=== PATIENT | female | born 1975 | race Caucasian/White ===

== ENCOUNTER → 2022-02-15 10:50 | Outpatient (BNVA) | payer OTHER, SELFPAY | PROVIDERS: PCP Family Medicine; Visit Provider Physician Assistant Surgical | DX: E66.01 Morbid (severe) obesity due to excess calories (principal) | CPT/HCPCS: 99202; Q3014 ==

== ENCOUNTER 2022-03-05 07:47 | Outpatient (REF) | payer OTHER, SELFPAY ==
--- NOTE | ~2022-03-05 | XR_ITS ---
EXAMINATION: XR CHEST CLINICAL INFORMATION: Bariatric service evaluation. E66.01 COMPARISON: None TECHNIQUE: 2 views of the chest were obtained. FINDINGS: The lungs are clear. There is no airspace consolidation or groundglass opacity or effusion. Heart size normal. Vascularity normal. The hilar and mediastinal contours are unremarkable. There is a mild levocurvature lower thoracic spine. XR/XR chest 2V IMPRESSION: Unremarkable examination.
--- NOTE | 2022-03-05 07:56 | ECG_ITS ---
Test Reason : e66.01 Blood Pressure : / mmHG Vent. Rate : 084 BPM Atrial Rate : 084 BPM P-R Int : 158 ms QRS Dur : 094 ms QT Int : 384 ms P-R-T Axes : 067 044 030 degrees QTc Int : 453 ms Normal sinus rhythm Normal ECG No previous ECGs available Referred By: Rony Dumont Electronically Signed By:SUYAPA TSANG
[2022-03-05 08:03] LABS: MANUAL DIFF FLAG NO
[2022-03-05 08:23] LABS: Basophils Percent Auto 0.4 % (0-2); Eosinophils Absolute Auto 0.1 X10*3/uL (0.0-0.4); Hematocrit 41.9 % (37.0-47.0); Hemoglobin 14.2 g/dl (12.0-16.0); Imm Gran Abs Auto 0.03 X10*3/uL (0.00-0.03); Imm Gran Pct Auto 0.4 % (0.0-0.4); Lymphocytes Absolute Auto 1.6 X10*3/uL (1.2-4.9); Lymphocytes Percent Auto 22.5 % (20-40); Mean Corpuscular HGB Conc 33.9 g/dl (31.0-35.0); Mean Corpuscular Hemoglobin 31.4 pg (27.0-33.0); Mean Corpuscular Volume 92.7 fL (80.0-98.0); Mean Platelet Volume 11.6 fL (9.4-12.3); Monocytes Absolute Auto 0.5 X10*3/uL (0.1-1.2); Monocytes Percent Auto 6.5 % (2-11); Neutrophils Absolute Auto 4.8 x10*3/uL (2.0-8.3); Neutrophils Percent Auto 68.2 % (45-73); Platelet Count 248 X10*3/uL (160-400); Red Blood Count 4.52 X10*6/uL (4.20-5.50); Red Cell Distribution Width 12.3 % (11.0-16.0)
[2022-03-05 08:32] LABS: Estimated Average Glucose 100 mg/dL; Hemoglobin A1c % 5.1 %
[2022-03-05 08:49] LABS: Alanine Aminotransferase 23 U/L (0-31); Alkaline Phosphatase 51 U/L (39-117); Anion Gap 15 (12-20); Aspartate Amino Transferase 21 U/L (5-31); Bilirubin Total 0.4 mg/dL (0.0-1.0); Blood Urea Nitrogen 14 mg/dL (9-16); C Reactive Protein 1.11 mg/dL (< or = 0.50); Calcium 9.1 mg/dL (8.4-10.2); Carbon Dioxide 26 mmol/L (22-29); Chloride 104 mmol/L (96-108); Cholesterol 137 mg/dL; Estimated Glomerular Filt Rate > 60; Glucose Random 93 mg/dL (60-115); HDL Cholesterol 56 mg/dL; Iron 75 mcg/dL (30-160); LDL Cholesterol Calculated 70 mg/dl; Percent Iron Saturation 23 % (15-50); Potassium 4.2 mmol/L (3.3-5.1); Sodium 141 mmol/L (135-145); Total Iron Binding Capacity 325 mcg/dL (228-428); Triglycerides 58 mg/dL; Unsaturated Iron Binding 250 ug/dL
[2022-03-05 09:12] LABS: Ferritin 35 ng/mL (10-250); TSH reflex Free T4 1.31 uIU/mL (0.32-4.0); Vitamin D 25-OH Total 27.9 ng/mL (>30)
[2022-03-05 09:27] LABS: Insulin 9 uU/mL (2-29)
[2022-03-05 10:07] LABS: Folate 11.3 ng/mL (> or = 4.0); Vitamin B12 413 pg/mL (200-900)
[2022-03-06 11:57] LABS: Calcium (PTHI) 9.4 mg/dL (8.6-10.2); PTHI 25 pg/mL (16-77)
[2022-03-09 12:36] LABS: Zinc 77 mcg/dL (60-130)
[2022-03-10 17:10] LABS: Vitamin A 35 mcg/dL (38-98)
[2022-03-13 06:11] LABS: Vitamin B1 <6 nmol/L (8-30)
== END 2022-03-05 07:48 | disposition home or self-care (01) ==
LOC: HO.XRAY 07:47
PROVIDERS: PCP Family Medicine; Visit Provider Physician Assistant Surgical
DX: E66.01 Morbid (severe) obesity due to excess calories (principal)
CPT/HCPCS: 36415; 71046; 80053; 80061; 82306; 82607; 82728; 82746; 83036; 83525; 83540; 83970; 84425; 84443; 84590; 84630; 85025; 86140; 93005

== ENCOUNTER → 2022-03-11 09:58 | Outpatient (BNVA) | payer OTHER, SELFPAY | PROVIDERS: PCP Family Medicine; Visit Provider Physician Assistant Surgical | DX: Z11.0 Encounter for screening for intestinal infectious diseases (principal); E66.01 Morbid (severe) obesity due to excess calories; Z68.41 Body mass index [BMI] 40.0-44.9, adult | CPT/HCPCS: 99211; 99212 ==

== ENCOUNTER 2022-03-11 17:19 | Outpatient (REF) | payer OTHER, SELFPAY ==
[2022-03-12 13:20] LABS: H Pylori Breath Test Negative (Negative)
== END 2022-03-11 17:20 | disposition home or self-care (01) ==
LOC: HO.LNP 17:19
PROVIDERS: Visit Provider Physician Assistant Surgical
DX: E66.01 Morbid (severe) obesity due to excess calories (principal)
CPT/HCPCS: 83013

== ENCOUNTER → 2022-03-19 14:09 | Outpatient (BNVA) | payer OTHER, SELFPAY | PROVIDERS: PCP Family Medicine; Referring Provider Physician Assistant Surgical; Visit Provider Dietitian, Registered | DX: E66.01 Morbid (severe) obesity due to excess calories (principal); Z68.41 Body mass index [BMI] 40.0-44.9, adult | CPT/HCPCS: 97802 ==

== ENCOUNTER → 2022-04-04 14:00 | Outpatient (BNVA) | payer OTHER, SELFPAY | PROVIDERS: PCP Family Medicine; Referring Provider Physician Assistant Surgical; Visit Provider Counselor Mental Health | DX: F43.20 Adjustment disorder, unspecified (principal); E66.01 Morbid (severe) obesity due to excess calories | CPT/HCPCS: 90791 ==

== ENCOUNTER 2022-04-15 08:00 | Outpatient (REF) | payer OTHER, SELFPAY ==
--- NOTE | ~2022-04-15 | FL_ITS ---
EXAMINATION: XR FLUOROSCOPY UPPER GI WITH AIR CLINICAL INFORMATION: Obesity COMPARISON: None TECHNIQUE: Upper GI was performed using thin and thick barium and effervescent granules. FINDINGS: Esophageal motility is normal. No hernia or reflux is seen. The stomach and duodenum are normal-appearing. No fold thickening, mass, ulcer or stricture is seen. FLUOROSCOPY TIME: 0.5 minutes DOSE AREA PRODUCT: 5.2 Love per centimeter squared. 20 saved fluoroscopic images. FL/FL upper GI w air IMPRESSION: Unremarkable examination.
--- NOTE | ~2022-04-15 | US_ITS ---
EXAMINATION: US COMPLETE ABDOMEN WITH LIVER ELASTOGRAPHY CLINICAL INFORMATION: Obesity. COMPARISON: None. TECHNIQUE: Real-time imaging of the abdominal viscera. Noninvasive ultrasound liver fibrosis assessment is performed using Hermann ElastPQ point quantification shear wave elastography (2D-SWE) with a C5-2 MHz transducer. Multiple elastography samples are obtained. FINDINGS: PANCREAS: Normal. The visualized pancreatic head and body are normal in appearance. The remainder of the pancreas is obscured from visualization by the overlying bowel gas. ABDOMINAL AORTA: The proximal, middle, and distal aortic segments are normal in caliber. INFERIOR VENA CAVA: Visualized portions are normal. LIVER: Normal. The liver demonstrates normal size, contour and echogenicity. No focal lesion or intrahepatic biliary duct dilatation. The right lobe measures 14.2 cm in length. The left lobe measures 9.0 cm in length. Portal flow is towards the liver (hepatopetal). Shear wave liver elastography median stiffness is 2.05 m/s (reference: normal median stiffness is 1.3 m/s or less). IQR/median stiffness to assess sampling precision is 0.13 (reference: good quality data set is IQR/median stiffness of 0.15 or less). GALLBLADDER: There are gallstones, without biliary sludge, polyps, wall thickening or pericholecystic fluid. COMMON BILE DUCT: Normal in caliber measuring 0.4 cm in diameter. RIGHT KIDNEY: Normal. No hydronephrosis. No renal calculi or focal parenchymal lesions. The kidney measures 11.2 cm in maximum dimension. LEFT KIDNEY: Normal. No hydronephrosis. No renal calculi or focal parenchymal lesions. The kidney measures 10.9 cm in maximum dimension. SPLEEN: Normal. The spleen measures 9.2 cm in maximum dimension. FREE FLUID: None. US/US abdomen comp w elastography IMPRESSION: 1. There is cholelithiasis, cholecystitis or choledocholithiasis. 2. Liver elastography: Measurements are suggestive of compensated advanced chronic liver disease but need further test for confirmation. REFERENCE: Society of Radiologists in Ultrasound Liver Stiffness Thresholds (2020): LIVER STIFFNESS THRESHOLDS: *Liver Stiffness equal or less than 1.3 m/s: High probability of being normal. *Liver Stiffness less than 1.7 m/s: In the absence of other known clinical signs, rules out compensated advanced chronic liver disease. *Liver Stiffness 1.7-2.1 m/s: Suggestive of compensated advanced chronic liver disease but need further test for confirmation. *Liver Stiffness over 2.1 m/s: Rules in compensated advanced chronic liver disease. *Liver Stiffness over 2.4 m/s: Suggestive of clinically significant portal hypertension. QUALITY OF DATA SET: *IQR/Median value equal or less than 0.15 implies a quality data set. *IQR/Median value over 0.15 implies a poor quality data set. SIGNIFICANT CHANGE FROM PRIOR EXAM: Significant change if liver stiffness measurement is 10% or greater from prior exam. OTHER CONSIDERATIONS: The stage of liver fibrosis may be overestimated in the setting of acute hepatitis, liver inflammation, elevated liver function tests, hepatic vascular congestion, obstructive cholestasis, non-fasting state, and infiltrative diseases such as amyloidosis and lymphoma. In some patients with NAFLD, the liver stiffness thresholds for compensated advanced chronic liver disease may be lower. In causes other than viral hepatitis and NAFLD, liver stiffness thresholds are not well established.
== END 2022-04-15 08:01 | disposition home or self-care (01) ==
LOC: HO.US 08:00
PROVIDERS: Visit Provider Physician Assistant Surgical
DX: E66.01 Morbid (severe) obesity due to excess calories (principal)
CPT/HCPCS: 74246; 76705; 76981

== ENCOUNTER 2022-04-18 09:49 | Inpatient (IN) | payer OTHER, SELFPAY ==
[2022-04-12 08:59] VITALS: BMI 40.2
--- NOTE | 2022-04-12 21:02 | P.HPSUR_ITS ---
Pre-Procedural Eval Section A Date of Service: 04/12/22 The patient is an INPATIENT: Yes The History & Physical has been completed within 30 days and I have reviewed it.: Yes Section B Chief Complaint: Morbid (severe) obesity due to excess calories Relevant Family History (Specify if Yes): No Relevant Social History: None Present Medications: None Medical History: No relevant PMH History of Previous Operations: No relevant previous surgery Allergies: Allergies Allergy/AdvReac Type Severity Reaction Status Date / Time No Known Allergies Allergy Verified 03/11/22 10:27 Review of Systems Sugical H&P ROS: Negative: Constitution, Cardiovascular, Respiratory, Neurological, Psychiatric, Hem-Onc, Allergic/Immunologic, Gastrointestinal, Genitourinary, Musculoskeletal, Integumentary, Endocrine and Eyes/Ears/No se/Throat Exam Surgical H&P Exam: Normal: HEENT, Normal: Heart, Normal: Lungs, Normal: Extremities, Normal: Abdomen, Normal: Skin and Normal: Neurological Plan Diagnosis/Plan: Unchanged I have reviewed the history and physical and performed a pertinent physical examination on my patient. No changes have occurred unless specified.
[2022-04-13 10:22] LABS: MANUAL DIFF FLAG NO
[2022-04-13 10:40] LABS: Basophils Percent Auto 0.4 % (0-2); Eosinophils Absolute Auto 0.1 X10*3/uL (0.0-0.4); Eosinophils Percent Auto 1.6 % (0-4); Hematocrit 41.3 % (37.0-47.0); Hemoglobin 13.8 g/dl (12.0-16.0); Imm Gran Abs Auto 0.01 X10*3/uL (0.00-0.03); Imm Gran Pct Auto 0.2 % (0.0-0.4); Lymphocytes Absolute Auto 1.4 X10*3/uL (1.2-4.9); Lymphocytes Percent Auto 25.1 % (20-40); Mean Corpuscular HGB Conc 33.4 g/dl (31.0-35.0); Mean Corpuscular Hemoglobin 31.4 pg (27.0-33.0); Mean Corpuscular Volume 93.9 fL (80.0-98.0); Mean Platelet Volume 12.1 fL (9.4-12.3); Monocytes Absolute Auto 0.4 X10*3/uL (0.1-1.2); Monocytes Percent Auto 6.9 % (2-11); Neutrophils Absolute Auto 3.6 x10*3/uL (2.0-8.3); Neutrophils Percent Auto 65.8 % (45-73); Platelet Count 205 X10*3/uL (160-400); Red Cell Distribution Width 12.2 % (11.0-16.0); White Blood Count 5.5 X10*3/uL (4.8-10.8)
[2022-04-13 10:47] LABS: Estimated Average Glucose 100 mg/dL; Hemoglobin A1c % 5.1 %
[2022-04-13 10:58] LABS: Prothrombin Time 11.9 SEC (10.0-13.1)
[2022-04-13 11:00] LABS: Partial Thromboplastin Time 36.4 SEC (26.0-36.4)
[2022-04-13 11:32] LABS: Alanine Aminotransferase 49 U/L (0-31); Albumin Level 3.9 g/dL (3.5-5.0); Alkaline Phosphatase 48 U/L (39-117); Anion Gap 15 (12-20); Aspartate Amino Transferase 29 U/L (5-31); Blood Urea Nitrogen 14 mg/dL (9-16); C Reactive Protein 0.86 mg/dL (< or = 0.50); Carbon Dioxide 25 mmol/L (22-29); Chloride 106 mmol/L (96-108); Cholesterol 145 mg/dL; Estimated Glomerular Filt Rate > 60; Glucose Random 97 mg/dL (60-115); HDL Cholesterol 50 mg/dL; LDL Cholesterol Calculated 88 mg/dl; Potassium 4.1 mmol/L (3.3-5.1); Sodium 142 mmol/L (135-145); Total Protein 6.5 g/dL (6.5-8.0); Triglycerides 38 mg/dL
[2022-04-13 11:37] LABS: Insulin 9 uU/mL (2-29); TSH reflex Free T4 1.23 uIU/mL (0.32-4.0)
[2022-04-13 11:57] LABS: Bilirubin Total 0.4 mg/dL (0.0-1.0)
--- NOTE | 2022-04-17 10:01 | HO.ANESPROP2 ---
Documented by User: Anitha Jane NP 04/17/22 10:04 HPI - Anesthesia Eval Consult details Narrative: 46yo F for Gastrectomy Sleeve, EGD, possible diaphragmatic hernia. possible ventral hernia, possible open PMFSH Active Problems Active Problems: All Active Problems (Updated 04/12/22 @ 08:56 by Magdalena Nieto RN) Morbid obesity (Acute) HTN (hypertension) (Acute) Vitamin B12 deficiency (Acute) Adjustment disorder, unspecified (Acute) Past Medical History Medical History (Updated 04/18/22 @ 11:19 by Rufino Gonzalez MD) DJD (degenerative joint disease) HTN (hypertension) PONV (postoperative nausea and vomiting) Psoriasis Family History Family History Mother COPD (chronic obstructive pulmonary disease) Father No problems noted. Daughter No problems noted. Daughter No problems noted. Daughter No problems noted. Daughter No problems noted. Surgical History Surgical History (Updated 04/18/22 @ 13:56 by MICHAEL Marcano) History of bilateral breast implants Hx of colonoscopy Hx of mastectomy Hx of shoulder surgery Hx of tubal ligation Social History Social History Household Members: Spouse Housing: House Are you a primary home care associate to a significant other at home: Yes ( handicapped daughter) Do you presently have visiting nurse or other home services: No Alcohol intake: current Alcohol intake frequency: holidays/special occasions only Patient Tobacco Use Status: Former Tobacco user Quit Date: 2011 Tobacco use type: Cigarette Smoked in Last 30 Days: No Use of substances other than those prescribed or required for medical reasons: No Have you been hit, kicked, punched, or otherwise hurt by someone within the past year? If so, by whom?: No Do you feel safe in your current relationship?: Yes Is there a partner from a previous relationship who is making you feel unsafe now?: No Are you made to feel afraid or neglected: No Gnosticist Healthcare Practices: orthodox Are you DNR?: No Advance Directives: No Advance Directives Information Provided: Yes Advance Directives on File: No Do you have thoughts of harming others: None Do you have a plan to hurt others: No Plan Recently lost weight without trying: No Nutrition Risks: No Nutritional Risk Patient : No FDLMP: : No Poor oral hygiene: No Meds Allergies Allergy/AdvReac Type Severity Reaction Status Date / Time No Known Allergies Allergy Verified 03/11/22 10:27 Exam Exam Date and Time: April 17, 2022 1001 Height,Weight and Vital Signs: Height 5 ft 1 in Weight 96.615 kg Pertinent Lab Results Pertinent Lab Results: Laboratory Tests 04/13/22 04/13/22 04/13/22 10:15 10:21 10:21 WBC 5.5 RBC 4.40 Hgb 13.8 Hct 41.3 MCV 93.9 MCH 31.4 MCHC 33.4 RDW 12.2 Plt Count 205 MPV 12.1 Immature Gran % (Auto) 0.2 Neut % (Auto) 65.8 Lymph % (Auto) 25.1 [place] % (Auto) 6.9 Eos % (Auto) 1.6 Baso % (Auto) 0.4 Lymph # (Auto) 1.4 [place] # (Auto) 0.4 Eos # (Auto) 0.1 Baso # (Auto) 0.0 Abs Immat Gran (auto) 0.01 Absolute Neuts (auto) 3.6 Absolute Nucleated RBC 0.000 Nucleated RBC % (auto) 0.0 PT 11.9 INR 1.0 APTT 36.4 Sodium Potassium Chloride Carbon Dioxide Anion Gap BUN Creatinine Estim Creat Clear Calc Estimated GFR Random Glucose Estimat Average Glucose Hemoglobin A1c % Insulin Level Calcium Total Bilirubin AST ALT Alkaline Phosphatase C-Reactive Protein Total Protein Albumin Triglycerides Cholesterol LDL Cholesterol, Calc HDL Cholesterol TSH Blood Type O Negative Antibody Screen NEGATIVE 04/13/22 04/13/22 10:21 10:21 WBC RBC Hgb Hct MCV MCH MCHC RDW Plt Count MPV Immature Gran % (Auto) Neut % (Auto) Lymph % (Auto) [place] % (Auto) Eos % (Auto) Baso % (Auto) Lymph # (Auto) [place] # (Auto) Eos # (Auto) Baso # (Auto) Abs Immat Gran (auto) Absolute Neuts (auto) Absolute Nucleated RBC Nucleated RBC % (auto) PT INR APTT Sodium 142 Potassium 4.1 Chloride 106 Carbon Dioxide 25 Anion Gap 15 BUN 14 Creatinine 0.82 Estim Creat Clear Calc 93.0 Estimated GFR > 60 Random Glucose 97 Estimat Average Glucose 100 Hemoglobin A1c % 5.1 Insulin Level 9 Calcium 9.0 Total Bilirubin 0.4 AST 29 ALT 49 H Alkaline Phosphatase 48 C-Reactive Protein 0.86 H Total Protein 6.5 Albumin 3.9 Triglycerides 38 Cholesterol 145 LDL Cholesterol, Calc 88 HDL Cholesterol 50 TSH 1.23 Blood Type Antibody Screen Narrative Narrative: EKG 02/2022 Vent. Rate : 084 BPM ? ? Atrial Rate : 084 BPM ?? P-R Int : 158 ms? QRS Dur : 094 ms ? ? QT Int : 384 ms ? ? ? P-R-T Axes : 067 044 030 degrees ?? QTc Int : 453 ms ? Normal sinus rhythm Normal ECG No previous ECGs available Assessment and Plan Assessment Anesthesia Assessment: Chart Reviewed Documented by User: Be Sutton MD 04/18/22 16:31 [facility] Past Medical History Medical History (Updated 04/18/22 @ 11:19 by Rufino Gonzalez MD) DJD (degenerative joint disease) HTN (hypertension) PONV (postoperative nausea and vomiting) Psoriasis Functional capacity: independent ambulation Family History Family History Mother COPD (chronic obstructive pulmonary disease) Father No problems noted. Daughter No problems noted. Daughter No problems noted. Daughter No problems noted. Daughter No problems noted. Family history of problems with anesthesia: No Surgical History Surgical History (Updated 04/18/22 @ 13:56 by MICHAEL Marcano) History of bilateral breast implants Hx of colonoscopy Hx of mastectomy Hx of shoulder surgery Hx of tubal ligation History of Problems with Anesthesia: No Social History Social History Household Members: Spouse Housing: House Are you a primary home care associate to a significant other at home: Yes ( handicapped daughter) Do you presently have visiting nurse or other home services: No Alcohol intake: current Alcohol intake frequency: holidays/special occasions only Patient Tobacco Use Status: Former Tobacco user Quit Date: 2011 Tobacco use type: Cigarette Smoked in Last 30 Days: No Use of substances other than those prescribed or required for medical reasons: No Have you been hit, kicked, punched, or otherwise hurt by someone within the past year? If so, by whom?: No Do you feel safe in your current relationship?: Yes Is there a partner from a previous relationship who is making you feel unsafe now?: No Are you made to feel afraid or neglected: No Gnosticist Healthcare Practices: orthodox Are you DNR?: No Advance Directives: No Advance Directives Information Provided: Yes Advance Directives on File: No Do you have thoughts of harming others: None Do you have a plan to hurt others: No Plan Recently lost weight without trying: No Nutrition Risks: No Nutritional Risk Patient : No FDLMP: : No Poor oral hygiene: No Meds Allergies Allergy/AdvReac Type Severity Reaction Status Date / Time No Known Allergies Allergy Verified 03/11/22 10:27 Exam Airway Mallampati Class: III TM Dist: >3cm Neck ROM: Full Loose/Missing/Broken Teeth: Yes (Chipped front teeth , fillings ) Heart: S1,S2 Lungs: b/l breath sounds Assessment and Plan Assessment Anesthesia Assessment: Anesthesia Plan Discussed Final Anesthetic Review Family History of Problems with Anesthesia: No History of Problems with Anesthesia: No NPO: Yes ASA Class: III Final Preanesthetic Review: Meds/Allgs Chart Reviewed, Consent Obtained/Reviewed and Anes Risks/Benef Reviewed Patient Risk: Intermediate Procedure Risk: Intermediate Anesthetic Plan Anesthetic Plan: GA Disposition: Standard PACU
[2022-04-17 13:42] LABS: COVID-19 Test Negative (Negative); IDNOW Serial# 16C4AD1C
[2022-04-18] VITALS (11 sets, daily range): BP systolic 99–133; BP diastolic 59–79; PULSE 66–97; RESP 12–18; TEMP 36.2–36.9; O2SAT 94–100
[2022-04-18] MEDS: Scopolamine 1.5 MG PATCH.TD.3 TRANSDERMA (10:28)
--- NOTE | 2022-04-18 11:07 | P.BOP_ITS ---
Brief Operative Note Date of Service: 04/18/22 Pre-op diagnosis: Morbid obesity with comorbidities (see below) Procedure: INITIAL PATIENT BMI ON PRESENTATION AT OUR OFFICE: 46.8 kg/m2 LAST BMI BEFORE SURGERY: 40.3 kg/m2 COMORBIDITIES: hypertension, DJD, psoriasis ?The patient presented to the Weight Management Program with significant obesity that was negatively impacting the patient's comorbidities as listed above.? The program is a phased program with a special focus on preoperative medical weight management to promote substantial weight loss and prepare the patients for the second phase of the program: bariatric surgery. The patient participated in an i ntensive weekly lifestyle ?intervention and exercise program during which the patient ?has lost between the initial office visit and the last preoperative visit 34.2lbs, or 13.8% of initial actual body weight. It was deemed appropriate for the patient to now have bariatric surgery. In light of the current Covid-19 pandemic and the well documented strong association of obesity and increased risk of worse outcomes if infected with Covid-19 (REFERENCES: https://pubmed.ncbi.nlm.nih.gov/13388175/ ,? https://pubmed.ncbi.nlm.nih.gov/01695553/ ), any delay in undergoing bariatric surgery may lead to the patient's worsening health condition and increased?risk of more severe Covid-19 disease if infected. In addition a recent?study from [facility] published in [employer] on 07/16/2021 ([email or web address]) found that, among patients with obesity, substantial weight loss achieved with surgery was associated with improved outcomes of COVID-19 infection. The findings suggest that obesity can be a modifiable risk factor for the severity of COVID-19 infection. In addition, the patient met the BMI-criteria for bariatric surgery based on the BMI on initial presentation. The patient should not be penalized for achieving such weight loss because ?it is not sustainable long-term without surgical intervention and it was achieved in preparation for bariatric surgery ?under my direction and based on my published research ([email or web address]).[email or web address] and? https://www.edith.org/article/V9860-4507(16)43195-X/pdf ) ?that a 10% preoperative weight loss improves long-term weight loss after surgery and reduces perioperative complications.? Insurance carriers such as [facility] have endorsed my recommendations ?and have included in their policies criteria to include a 10% preoperative weight loss requirement. PROCEDURE: Esophago-gastroscopy, laparoscopic sleeve gastrectomy and laparoscopic gastropexy INDICATIONS: This is a 46 year-old female who was electively scheduled for laparoscopic, possibly open sleeve gastrectomy. The risks and complications of the procedure were discussed with the patient in advance, particularly the possibility of ; pulmonary embolism; staple line leak; bleeding; GERD; cardiac, pulmonary, or renal complications; as well as long-term problems such as insufficient weight loss, vitamin deficiency, strictures, or ulcers. The patient understood all the risks, and was in agreement to proceed with surgery. DESCRIPTION OF PROCEDURE: After informed consent was obtained from the patient, the patient was given preoperative antibiotics, and was transferred to the operating room. After successful induction of general anesthesia, pneumatic compression devices were placed on both lower extremities. An upper endoscopy was performed next. The oropharynx and esophagus appeared to be within normal limits. There was no diaphragmatic hernia present consistent with the findings of the preoperative upper GI. The stomach was entered. Then after all fluid and air were suctioned and the stomach was fully decompressed, the scope was withdrawn and secured in the mid esophagus. The patient was then prepped and draped in the usual sterile manner, and abdominal access was established at the right upper quadrant with the Cindy technique. A 12 mm blunt port was inserted, and the abdomen was insufflated with CO2 to a pressure of 15 mmHg. Under direct visualization, additional ports were placed, specifically two 5 mm Versi-step ports to the left upper quadrant, and a 5 mm Versi-Step port to the right upper quadrant. 1% lidocaine plain was used to infiltrate all port sites as well as all fascia defects. Using the EndoClose suture passer device, I placed a #1 Polysorb tie across the falciform ligament in order to retract it up against the abdominal wall and prevent injury of the ligament with our instruments during the procedure. Following that, the patient was placed in a steep reverse Trendelenburg position. An additional 5 mm port was placed to the right flank for the Mediflex retractor that was used to retract the left lobe of the liver. The gastro-esophageal fat pad was opened with the ultrasonic device (Thunderbeat, Olympus) and the anterior esophagus and hiatus were exposed. The angle of His was opened with the ultrasonic device the fundus of the stomach from any diaphragmatic and splenic attachments. I then opened the gastrocolic ligament between the transverse colon and the greater curvature of the stomach with the ultrasonic device to enter the lesser sac and facilitate the ligation of the short gastric vessels. I started at a mid-point along the greater curvature and using the Thunderbeat, all short gastric vessels were divided all the way to the angle of His until the left troy was completely dissected at its entirety. I then divided the gastro-colic ligament distally to a distance of about 3-4 cm proximal to the pylorus. The stomach was then divided transversely with one Endo CASSIE-45 purple, one CASSIE- 45 orange load and three CASSIE-60 articulating orange loads using the AEON stapler and loads. Every effort was made that the gastric sleeve had a tubular shape and an even caliber throughout. Once the sleeve resection was completed, the staple line of the gastric sleeve was reinforced with Hemoclips. The resected stomach was retrieved without difficulty from the Cindy port. A gastropexy was then performed in order to prevent postoperative GERD and partial gastric volvulus. Several interrupted 2.0 Surgidac sutures were placed between the sleeve's staple line and the previously divided greater omentum and gastro-colic ligament using the Endo-Stitch device. ?An upper endoscopy was performed. There was no narrowing at the GE junction. The scope was easily advanced all the way to the pylorus which was clearly visualized. There was no narrowing anywhere and the sleeve's caliber was even throughout. The sleeve's staple line was inspected and there was no evidence of ischemia, bleeding or dehiscence. At that point the gastroscope was withdrawn from the patient?s mouth while we were decompressing the bowel and the stomach from any remaining air. I looked into the lesser sac to see how the sleeve was situating and it was situating well. There was no bleeding from the staple line, spleen, or short gastric vessels. The Mediflex retractor was removed, and the undersurface of the liver was inspected and there was no bleeding. The patient was placed in supine position. I closed the fascial defect of the 12 mm port site with a figure of eight #1 Polysorb suture. Then 30cc Ropivacaine plain with 10 mg of Dexamethasone were us ed to infiltrate the fascial closure as well as all skin incisions. A total of 7ml of Zynrelef was applied in the Cindy wound. At this point, the abdomen was deflated, all ports were removed under direct vision, and no bleeding was noted from any of the port sites. The skin incisions were irrigated with saline and were closed with 4-0 absorbable monofilament sutures. Steri-Strips and OpSites were used to cover all incisions. The patient was extubated and was transferred in stable condition to the recovery room for further care. I was present and performed all de leon parts of the procedure. 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 There were no residents to assist with this case. Marin Gonzalez MD, PhD, FACS Surgeon: Rufino Gonzalez MD Anesthesia: GETA, local and none (TAP block and 7ml Zynrelef) Was an Creative/Art Director used for this Procedure?: No Creative/Art Director: Rony Dumont Estimated blood loss (mL): 10 IV fluids (mL): 2,500 Urine output (mL): 0 (No Ricardo to record) Pathology: other (Stomach) Condition: stable Disposition: PACU
--- NOTE | 2022-04-18 11:18 | PM.PNGS ---
Subjective Subjective Date of Service: 04/19/22 Interval history: Patient has mild incisional pain, but was able to ambulate and use the incentive spirometer. She is tolerating phase 1 bariatric diet Physical Exam Vital Signs: Vital Signs: Last Vital Signs Temp 97.7 F 04/18/22 10:20 Pulse 76 04/18/22 10:20 Resp 16 04/18/22 10:20 BP 124/79 04/18/22 10:20 Pulse Ox 97 04/18/22 10:20 O2 Del Method 04/18/22 10:20 BMI result Body Mass Index 40.2 GI: Inspection: Yes normal to inspection, Yes incision (yves, dry and intact) and Yes obesity Extrem: Right lower extremity: normal to inspection (no calf tenderness) Left lower extremity: normal to inspection (no calf tenderness) Objective Data Active Medications Lactated Ringer's (Lr) 1,000 mls @ 100 mls/hr IVCONT .Q10H CHARLES Lactated Ringer's (Lr) 1,000 mls @ 999 mls/hr IV .Q1H1M CHARLES Stop: 04/18/22 12:00 Labs CBC & Chem 7: 04/19/22 05:28 04/19/22 05:28 Labs: Laboratory Results - last 24 hr 04/17/22 13:24 COVID-19 (MANUEL) Negative COVID-19 Clin Com See Note Procedures Date of Service Date of Service: 04/19/22 Progress Note: A&P Assessment and plan (1) Morbid obesity: Status: Acute Assessment and Plan: s/p laparoscopic sleeve gastrectomy and gastropexy Doing well Check am labs. If OK, will discharge home (2) DJD (degenerative joint disease): Status: Acute (3) Psoriasis: Status: Acute (4) Panniculitis: Status: Acute (5) S/P laparoscopic sleeve gastrectomy: Status: Acute Time Spent With Patient Time: Total time spent is greater than 50% in coordination of care (as documented) at patient's floor/unit and/or counseling patient: Quality Stroke Does the patient have a stroke diagnosis?: No VTE Prior VTE?: No VTE Risk Level:: Surgical - moderate VTE Device Contraindication: N/A - Device Ordered VTE Drug Contraindication: Treatment Not Indicated
[2022-04-18] MEDS: ceFAZolin Sodium/Dextrose,Iso 2 GM/50 ML PIGGYBACK IV ×2 (11:38→17:01)
--- NOTE | 2022-04-18 13:54 | PM.DS ---
DS: Providers Provider Date of Service: 04/19/22 Date of admission: 04/18/22 09:49 Primary care physician: Unknown Physician DS: Diagnosis Discharge Diagnosis (1) Morbid obesity: Status: Acute (2) DJD (degenerative joint disease): Status: Acute (3) Psoriasis: Status: Acute (4) Panniculitis: Status: Acute DS: Summary Hospital Course Hospital Course: ADMITTING DIAGNOSIS: morbid obesity ? DISCHARGE DIAGNOSIS: same, s/p laparoscopic sleeve gastrectomy ? PAST SURGICAL HISTORY: mastectomy, breast augmentation, tubal ligation, shoulder surgery ? PROCEDURE: upper endoscopy, laparoscopic sleeve gastrectomy ? DISCHARGE SUMMARY: ? History of Present Illness: ? The patient is a?46 year-old woman with a BMI of?47.2 kg/m2 and associated co-morbidities as described above. The patient had extensive work-up,lost?34.2 lbs preoperatively and was electively scheduled for laparoscopic, possible open sleeve gastrectomy and gastropexy. Risks and complications of the surgery were discussed with the patient in advance, particularly the possibility of , pulmonary embolism, anastomotic leak, bleeding, bowel injury, GERD, cardiac, renal or pulmonary complications. The patient understood all the risks and was in agreement with the surgical plan. ? Hospital Course: ? The patient underwent an uneventful laparoscopic sleeve gastrectomy with gastropexy on the day of admission. Postoperatively, the patient was transferred to the surgical floor. The patient received IV Acetaminophen and IV dilaudid for pain control. Patient was started on bariatric phase 1 diet POD #0. On postoperative day one, the patient was feeling well without nausea, vomiting, fevers, or tachycardia. The patient had some mild incisional pain and the abdomen was soft. ? On the morning of postoperative day one, the patient was continued on 1 ounce of water or ice every half hour. During the day, the patient did fairly well, having some incisional pain, but able to ambulate adequately and to tolerate liquids well. ? Since the patient is doing well, we decided that the patient was ready to be discharged. The patient was given instructions to follow-up with me next week and to call my office for any fever over 101, persistent abdominal pain, nausea, vomiting, GERD, symptoms of DVT such as calf tenderness, or leg swelling, or pulmonary embolism such as chest pain or shortness of breath. The patient was also instructed to drink 40-60 ounces of liquids per day using the 1-ounce cups. The patient had been given prescriptions for Tylenol for pain, Zofran prn for nausea, and pantoprazole and carafate previously. The patient was encouraged to ambulate and use the incentive spirometer. The patient was allowed to shower, but no baths, and encouraged to stay active at home. All of these instructions were given to the patient personally. All questions were answered and the patient understood all instructions, the instructions were also given to the patient in print. Time Spent with Patient Time attestation: Total time spent providing and/or coordinating discharge services: Discharge coordination time: Less than 30 minutes Quality: Safe Use of Opioids Does Pt have an Active Cancer Diagnosis on the Problem List?: No Quality: Stroke Does the patient have a stroke diagnosis?: No Physical Exam Vital Signs: Vital Signs: Last Vital Signs Temp 97.7 F 04/18/22 10:20 Pulse 76 04/18/22 10:20 Resp 16 04/18/22 10:20 BP 124/79 04/18/22 10:20 Pulse Ox 97 04/18/22 10:20 O2 Del Method 04/18/22 10:20 BMI result Body Mass Index 40.2 DS: Data Data Completed and Pending Pending studies at discharge: Pending at discharge 04/18/22 13:09 Surgical [PTH] Routine Discharge Plan Discharge Patient Disposition: Home, Self-Care Discharge Diagnosis: s/p laparoscopic sleeve gastrectomy Referrals: Physician,Unknown J [Primary Care Provider] - 1 Week Discharge Medications: Continued pantoprazole 40 mg tablet,delayed release (DR/EC) 40 mg PO DAILY Qty: 30 2RF sucralfate 100 mg/mL suspension 10 ml PO BID Qty: 400 2RF ondansetron HCl 4 mg tablet 4 mg PO Q6H PRN (Reason: nausea and vomiting) Qty: 20 0RF Discontinued thiamine HCl (vitamin B1) 100 mg tablet 100 mg PO DAILY Qty: 30 2RF mecobalamin (vitamin B12) 1,000 mcg tablet,disintegrating 1,000 mcg sublingual DAILY Qty: 30 2RF Rx Instructions: place tablet under tongue and allow to dissolve for at least30 secs before swallowing vitamin A palmitate 10,000 unit capsule 10,000 unit PO DAILY Qty: 30 2RF cholecalciferol (vitamin D3) 125 mcg (5,000 unit) capsule 125 mcg PO DAILY Qty: 30 3RF Discharge Orders: Discharge Order (Routine); Ordered 04/19/22 Ordered By: Rony Dumont Activity on Discharge: No heavy lifting Stand Alone Forms: Patient Portal Discharge page Care Plan Goals: weight loss Health Concerns: morbid obesity Plan of Treatment: No tub baths, sex or returning to work until discussed at first post op appointment. No exercise, alcohol, tobacco or illegal drug use. Continue to use incentive spirometer hourly while awake. Walk in home for 5- 10 minutes every 2 hours during the first week. Follow all instructions in the bariatric handbook and call with any questions.Discharge Instructions 1. Please call your doctor or come back to the emergency room should any new symptoms arise. 2. You will receive a courtesy call from [facility] 24-48 hours after discharge. 3. Activity: abstain from alcohol, practice limited stair climbing, no bending, no driving, no exercise, no illicit substances, no lifting, no sex, no tub bath, no work. 4. Diet: continue as discussed with Dr. Gonzalez. 5. Dressing Change/Wound Care: Your incision is covered by clear bandages and guaze underneath. If the area is tender, you may apply an ice pack for short intervals (no more than 20 minutes on, followed by at least 20 minutes off). Do not apply heat. Do not use creams, lotions, or topical antibiotics unless instructed to do so by your surgeon. These can cause infection or allergic reaction. 6. Call your doctor if: - Your temperature exceeds 101.5 F - You experience excessive pain or swelling - You have an unexpected reaction to medication - You have excessive bleeding - You experience continued vomiting/nausea - Your incision begins to separate - Your incision shows signs of infection such as increased redness, swelling, excessive pain, heat, or drainage (light blood or clear fluid is normal) 7. General instructions: No lifting greater than 5 lbs for the next 4 weeks[address] driving within 24 hours of taking narcotic pain medications. If you do not move your bowels in the next 2 days, please take milk of magnesia over the counter. Please follow the post op diet and do not advance your diet until you are seen in the office in about 2 weeks. Please walk around your home every hour or two to prevent blood clots from forming in your legs. You do not need to wake from sleeping to walk. Please sleep in a bed or couch to prevent kinking at the hips and knees. Please take your incentive spirometer (your lung showcase trimmer) home with you and use it for the next few days to prevent pneumonias. You may shower, no hot tubs, baths or swimming pools. Please call the office with any questions or concerns such as increasing abdominal pain, fever, chills, shortness of breath, chest pain, leg pain or swelling, or redness or drainage from your incisions. Please stay on stage 3 diet which includes sugar free clear liquids such as ice pops and jello and broth and crystal light. Avoid all carbonation. Please drink 3 protein shakes with at least 25-30 grams of protein daily or 3 of the Celebrate 4:1 shakes which can be purchased in our office. The Celebrate shakes have all of the bariatric vitamins you need if you consume these shakes. If you are drinking other protein shakes, you will need to purchase the Celebrate multivitamins and calcium that we provide in the office (they will provide all the vitamins you need). Please make sure you are consuming at least 40-60 ounces of water in addition to your 3 protein shakes daily. Do not hesitate to contact the office with any questions at . The patient's medical history has been reviewed and they are considered low risk for post op DVT and therefore DVT prophylaxis is not considered necessary. Travel after surgery was reviewed. The patient has not disclosed any travel plans during the first 30 days after surgery and they have been advised that within the first 30 days after surgery any bus, plane, train or car travel over 2 hours in duration is contraindicated due to the possibility of developing blood clots from immobility. Any travel, needs to include periods of ambulation of 10 minutes in duration every 2 hours.? The patient was instructed to discuss any plans for travel during this period with their bariatric surgeon. Assessment: stable, s/p laparoscopic sleeve gastrectomy
--- NOTE | 2022-04-18 14:06 | PHA.MEDREC ---
Pharmacy Consult ? Medication Reconciliation Pharmacy has completed the medication reconciliation.
[2022-04-18] MEDS: Famotidine/PF 20 MG/2 ML VIAL IVPUSH ×2 (14:20→19:53)
[2022-04-18 14:21] LABS: Hematocrit 39.1 % (37.0-47.0)
[2022-04-18 15:09] LABS: Anion Gap 21 (12-20); Blood Urea Nitrogen 11 mg/dL (9-16); Calcium 8.4 mg/dL (8.4-10.2); Carbon Dioxide 17 mmol/L (22-29); Chloride 104 mmol/L (96-108); Creatinine Clr Calc Pharmacy 103.1; Estimated Glomerular Filt Rate > 60; Glucose Random 98 mg/dL (60-115); Potassium 3.5 mmol/L (3.3-5.1); Sodium 138 mmol/L (135-145)
[2022-04-18] MEDS: Lactated Ringers 1,000 ML 125 ML IVCONT (15:25)
[2022-04-18] MEDS: ondansetron HCL 4 MG/2 ML VIAL IVPUSH (19:53)
[2022-04-19] MEDS: Lactated Ringers 1,000 ML 100 ML IVCONT ×2 (00:06→00:11)
[2022-04-19 04:00] VITALS: BP 103/62; PULSE 69; RESP 17; TEMP 36.1; O2SAT 96
[2022-04-19] MEDS: ondansetron HCL 4 MG/2 ML VIAL IVPUSH (04:19)
[2022-04-19 06:29] LABS: MANUAL DIFF FLAG NO
[2022-04-19 06:47] LABS: Hematocrit 36.1 % (37.0-47.0); Imm Gran Abs Auto 0.03 X10*3/uL (0.00-0.03); Imm Gran Pct Auto 0.3 % (0.0-0.4); Lymphocytes Absolute Auto 0.7 X10*3/uL (1.2-4.9); Lymphocytes Percent Auto 7.8 % (20-40); Mean Corpuscular HGB Conc 33.2 g/dl (31.0-35.0); Mean Corpuscular Hemoglobin 31.2 pg (27.0-33.0); Mean Corpuscular Volume 93.8 fL (80.0-98.0); Mean Platelet Volume 12.7 fL (9.4-12.3); Monocytes Absolute Auto 0.5 X10*3/uL (0.1-1.2); Monocytes Percent Auto 4.9 % (2-11); Neutrophils Absolute Auto 7.9 x10*3/uL (2.0-8.3); Platelet Count 200 X10*3/uL (160-400); Red Blood Count 3.85 X10*6/uL (4.20-5.50); Red Cell Distribution Width 12.4 % (11.0-16.0); White Blood Count 9.1 X10*3/uL (4.8-10.8)
[2022-04-19 07:08] LABS: Anion Gap 16 (12-20); Blood Urea Nitrogen 7 mg/dL (9-16); Calcium 8.4 mg/dL (8.4-10.2); Carbon Dioxide 19 mmol/L (22-29); Chloride 106 mmol/L (96-108); Estimated Glomerular Filt Rate > 60; Glucose Random 96 mg/dL (60-115); Potassium 4.4 mmol/L (3.3-5.1); Sodium 137 mmol/L (135-145)
[2022-04-19 07:15] VITALS: BP 107/66; PULSE 67; RESP 16; TEMP 36; O2SAT 96
--- NOTE | 2022-04-19 07:24 | HO.POSTANES ---
Post Anesthesia Evaluation Post Anesthesia Evaluation Vital Signs: Vital Signs Temp Pulse Resp BP Pulse Ox O2 Del Method 04/19/22 07:15 96.8 F 67 16 107/66 96 Room Air 04/19/22 04:00 97.0 F 69 17 103/62 96 Room Air 04/18/22 23:27 97.2 F 66 16 99/59 L 94 Room Air Anesthesia: General Endotracheal-GETA Mental Status: Awake Pain Control: Satisfactory Nausea/Vomiting: None Hydration: Adequate Anesthesia-Related Issues: No Anes. Related Issues
[2022-04-19] MEDS: Famotidine/PF 20 MG/2 ML VIAL IVPUSH (09:17)
--- NOTE | 2022-04-19 09:26 | MHC.CM.PN ---
EMR REVIEWED, PT S/P LAP SLEEVE GASTRECTOMY, PT REPORTS SHE LIVES W/ AND 21YP DTR, PT INDEP W/ALL CARE, DENIES USE OF DME/HOME SERVICES, PT VERIFIES HER PCP IS MARIS العلي X2 AND NICOLAS IS HER HCP, COPY REQUESTED/ D/C PLAN: HOME TODAY SELF CARE W/FAMILY FOR TRANSPORT
== END 2022-04-19 09:57 | disposition home or self-care (01) | DRG 403 ==
LOC: HO.SSSA 10:56 → HO.S3 12:27
PROVIDERS: Physician Assistant Surgical; Admitting Provider Surgery; PCP Family Medicine; Visit Provider Surgery
PROC: 0DB64Z3 Excision of Stomach, Percutaneous Endoscopic Approach, Vertical (ICD-10-PCS; CPT 43845; principal; 2022-04-18 11:10)
DX: E66.01 Morbid (severe) obesity due to excess calories (principal); I10 Essential (primary) hypertension; M19.90 Unspecified osteoarthritis, unspecified site; M79.3 Panniculitis, unspecified; L40.9 Psoriasis, unspecified; Z68.41 Body mass index [BMI] 40.0-44.9, adult; Z20.822 Contact with and (suspected) exposure to COVID-19; Z90.11 Acquired absence of right breast and nipple; Z98.51 Tubal ligation status; Z87.891 Personal history of nicotine dependence; Z79.899 Other long term (current) drug therapy
CPT/HCPCS: 36415; 80048; 80053; 80061; 83036; 83525; 84443; 85014; 85018; 85025; 85610; 85730; 86140; 86850; 86900; 86901; 87635; 88307; 88342; A4649; C9088; J0131; J0690; J1100; J1170; J2250; J2405; J2795; J3010

== ENCOUNTER 2022-06-17 07:05 | Outpatient (REF) | payer OTHER, SELFPAY ==
[2022-06-17 07:18] LABS: MANUAL DIFF FLAG NO
[2022-06-17 08:00] LABS: Basophils Percent Auto 0.3 % (0-2); Eosinophils Absolute Auto 0.1 X10*3/uL (0.0-0.4); Eosinophils Percent Auto 1.2 % (0-4); Hematocrit 40.6 % (37.0-47.0); Hemoglobin 13.3 g/dl (12.0-16.0); Imm Gran Abs Auto 0.01 X10*3/uL (0.00-0.03); Imm Gran Pct Auto 0.2 % (0.0-0.4); Lymphocytes Absolute Auto 1.7 X10*3/uL (1.2-4.9); Lymphocytes Percent Auto 29.5 % (20-40); Mean Corpuscular HGB Conc 32.8 g/dl (31.0-35.0); Mean Corpuscular Hemoglobin 30.7 pg (27.0-33.0); Mean Corpuscular Volume 93.8 fL (80.0-98.0); Monocytes Absolute Auto 0.5 X10*3/uL (0.1-1.2); Monocytes Percent Auto 8.8 % (2-11); Neutrophils Absolute Auto 3.5 x10*3/uL (2.0-8.3); Platelet Count 173 X10*3/uL (160-400); Red Blood Count 4.33 X10*6/uL (4.20-5.50); Red Cell Distribution Width 13.1 % (11.0-16.0); White Blood Count 5.9 X10*3/uL (4.8-10.8)
[2022-06-17 08:35] LABS: Alanine Aminotransferase 99 U/L (0-31); Albumin Level 3.8 g/dL (3.5-5.0); Alkaline Phosphatase 52 U/L (39-117); Anion Gap 11 (12-20); Aspartate Amino Transferase 44 U/L (5-31); Bilirubin Direct 0.3 mg/dL (0.0-0.5); Bilirubin Total 0.6 mg/dL (0.0-1.0); Blood Urea Nitrogen 13 mg/dL (9-16); Calcium 9.1 mg/dL (8.4-10.2); Carbon Dioxide 28 mmol/L (22-29); Chloride 103 mmol/L (96-108); Estimated Glomerular Filt Rate > 60; Glucose Random 84 mg/dL (60-115); Potassium 4.1 mmol/L (3.3-5.1); Sodium 138 mmol/L (135-145); Total Protein 6.3 g/dL (6.5-8.0)
== END 2022-06-17 07:06 | disposition home or self-care (01) ==
LOC: HO.LAB 07:05
PROVIDERS: PCP Family Medicine; Visit Provider Physician Assistant Surgical
DX: R10.11 Right upper quadrant pain (principal)
CPT/HCPCS: 36415; 80048; 80076; 85025

== ENCOUNTER 2022-06-18 13:46 | Outpatient (REF) | payer OTHER, SELFPAY ==
--- NOTE | ~2022-06-18 | US_ITS ---
EXAMINATION: US ABDOMEN COMPLETE CLINICAL INFORMATION: Right upper quadrant pain. COMPARISON: None TECHNIQUE: Real-time imaging of the abdominal viscera. FINDINGS: PANCREAS: The pancreas is not well visualized due to bowel gas. ABDOMINAL AORTA: The proximal, mid, and distal segments are normal in caliber. INFERIOR VENA CAVA: Visualized portions are normal. LIVER: Normal. The liver is normal in size. The liver contour is normal. Parenchymal echogenicity is normal. No focal hepatic lesion. There is no intrahepatic biliary duct dilatation seen. GALLBLADDER: There are gallstones in the gallbladder. The gallbladder is upper normal in size. The gallbladder wall is normal in thickness. There is no pericholecystic fluid. COMMON BILE DUCT: Normal in caliber measuring 0.4 cm in diameter. RIGHT KIDNEY: Normal. No hydronephrosis. No renal calculi or focal parenchymal lesions. The kidney measures 10 cm in maximum dimension. LEFT KIDNEY: Normal. No hydronephrosis. No renal calculi or focal parenchymal lesions. The kidney measures 9.6 cm in maximum dimension. SPLEEN: Normal. The spleen measures 10 cm in maximum dimension. FREE FLUID: None. US/US abdomen complete IMPRESSION: Gallstones. The gallbladder is upper normal in size. This is new from recent exam March 2022. Normal caliber intrahepatic extrahepatic bile ducts. Limited visualization of the pancreas.
== END 2022-06-18 13:47 | disposition home or self-care (01) ==
LOC: HO.US 13:46
PROVIDERS: Visit Provider Physician Assistant Surgical
DX: R10.11 Right upper quadrant pain (principal); K80.20 Calculus of gallbladder without cholecystitis without obstruction
CPT/HCPCS: 76700; 99212

== ENCOUNTER 2022-06-25 10:16 | Day surgery (SDC) | payer OTHER, SELFPAY ==
--- NOTE | 2022-06-24 10:40 | P.CONAN_ITS ---
Documented by User: Anitha Jane NP 06/24/22 10:42 HPI - Anesthesia Eval Consult details Narrative: 46yo F for Cholecystectomy Laparoscopic s/p gastric sleeve 03/2022 with GA-ETT 7 PONV PMFSH Active Problems Active Problems: All Active Problems (Updated 06/18/22 @ 15:42 by MICHAEL Marcano) Symptomatic cholelithiasis (Acute) RUQ abdominal pain (Acute) Constipation (Acute) RLQ abdominal pain (Acute) Obesity (BMI 30-39.9) (Acute) S/P laparoscopic sleeve gastrectomy (Acute) Panniculitis (Acute) Psoriasis (Acute) DJD (degenerative joint disease) (Acute) Morbid obesity (Acute) Vitamin B12 deficiency (Acute) Adjustment disorder, unspecified (Acute) Past Medical History Medical History DJD (degenerative joint disease) HTN (hypertension) PONV (postoperative nausea and vomiting) Psoriasis Family History Family History Mother COPD (chronic obstructive pulmonary disease) Father No problems noted. Daughter No problems noted. Daughter No problems noted. Daughter No problems noted. Daughter No problems noted. Family history of problems with anesthesia: No Surgical History Surgical History H/O gastric sleeve History of bilateral breast implants Hx of colonoscopy Hx of mastectomy Hx of shoulder surgery Hx of tubal ligation History of Problems with Anesthesia: No Social History Social History Household Members: Spouse Housing: House Are you a primary hospice care transitions coordinator to a significant other at home: Yes ( handicapped daughter) Do you presently have visiting nurse or other home services: No Alcohol intake: former Patient Tobacco Use Status: Former Tobacco user Quit Date: 2011 Tobacco use type: Cigarette Second Hand Smoke Exposure: No service: No Current occupational status: employed Meds Allergies Allergy/AdvReac Type Severity Reaction Status Date / Time No Known Allergies Allergy Verified 06/24/22 10:36 Exam Exam Date and Time: June 24, 2022 1040 Pertinent Lab Results Pertinent Lab Results: Laboratory Tests 04/13/22 04/13/22 06/17/22 10:21 10:21 07:17 WBC 5.5 5.9 Hgb 13.8 13.3 Hct 41.3 40.6 Plt Count 205 173 Sodium 142 Potassium 4.1 Chloride 106 Carbon Dioxide 25 BUN 14 Creatinine 0.82 06/17/22 07:17 WBC Hgb Hct Plt Count Sodium 138 Potassium 4.1 Chloride 103 Carbon Dioxide 28 BUN 13 Creatinine 0.69 Narrative Narrative: EKG 02/2022 Vent. Rate : 084 BPM ? ? Atrial Rate : 084 BPM ?? P-R Int : 158 ms? QRS Dur : 094 ms ? ? QT Int : 384 ms ? ? ? P-R-T Axes : 067 044 030 degrees ?? QTc Int : 453 ms ? Normal sinus rhythm Normal ECG No previous ECGs available Assessment and Plan Assessment Anesthesia Assessment: Chart Reviewed Final Anesthetic Review Family History of Problems with Anesthesia: No History of Problems with Anesthesia: No Documented by User: Be Sutton MD 06/25/22 19:41 [facility] Past Medical History Medical History DJD (degenerative joint disease) HTN (hypertension) PONV (postoperative nausea and vomiting) Psoriasis Family History Family History Mother COPD (chronic obstructive pulmonary disease) Father No problems noted. Daughter No problems noted. Daughter No problems noted. Daughter No problems noted. Daughter No problems noted. Surgical History Surgical History H/O gastric sleeve History of bilateral breast implants Hx of colonoscopy Hx of mastectomy Hx of shoulder surgery Hx of tubal ligation Social History Social History Household Members: Spouse Housing: House Are you a primary hospice care transitions coordinator to a significant other at home: Yes ( handicapped daughter) Do you presently have visiting nurse or other home services: No Alcohol intake: former Patient Tobacco Use Status: Former Tobacco user Quit Date: 2011 Tobacco use type: Cigarette Second Hand Smoke Exposure: No service: No Current occupational status: employed Meds Allergies Allergy/AdvReac Type Severity Reaction Status Date / Time No Known Allergies Allergy Verified 06/24/22 10:36 Exam Airway Mallampati Class: III TM Dist: >3cm Neck ROM: Full Loose/Missing/Broken Teeth: Yes (Chipped upper front teeth) Heart: S1,S2 Lungs: b/l breath sounds Assessment and Plan Assessment Anesthesia Assessment: Anesthesia Plan Discussed Final Anesthetic Review NPO: Yes ASA Class: III Final Preanesthetic Review: Meds/Allgs Chart Reviewed, Consent Obtained/Reviewed and Anes Risks/Benef Reviewed Patient Risk: Intermediate Procedure Risk: Intermediate Anesthetic Plan Anesthetic Plan: GA Disposition: Standard PACU, Extended PACU, Inp. Admit - Standard Bed, Inp. Admit - IMC and Inp. Admit - ICU
[2022-06-24 12:48] LABS: COVID-19 Test Negative (Negative); IDNOW Serial# 9DB6401D
[2022-06-25] VITALS (18 sets, daily range): BP systolic 112–126; BP diastolic 62–78; PULSE 71–85; RESP 16–20; TEMP 36.4–36.7; O2SAT 9–100; BMI 34.5
[2022-06-25] MEDS: Scopolamine 1.5 MG PATCH.TD.3 TRANSDERMA (10:30)
[2022-06-25] MEDS: Lactated Ringers 1,000 ML 100 ML IVCONT (10:44)
--- NOTE | 2022-06-25 11:30 | PM.OP ---
Brief Operative Note Date of Service: 06/25/22 Pre-op diagnosis: Symptomatic cholelithiasis Post-op diagnosis: same Procedure: PROCEDURE DATE: 06/25/2022 PREOPERATIVE DIAGNOSIS: Symptomatic cholelithiasis, mid epigastric and right upper quadrant abdominal pain POSTOPERATIVE DIAGNOSIS: Same as above. PROCEDURE: Laparoscopic cholecystectomy Surgeon: Marin Gonzalez M.D.. Ph.D. Rpg Programmer: Dinora Llamas PA-C Anesthesia: General endotracheal anesthesia Estimated blood loss: Minimal FINDINGS AND PROCEDURE: OPERATIVE INDICATIONS: The patient is a 46 year old female known to me who underwent a laparoscopic sleeve gastrectomy. The patient had remarkable weight loss so far and had a completely uneventful recovery. The patient was doing very well but has recently been complaining of persistent mid epigastric and right upper quadrant abdominal pain which is mostly postprandial. Ultrasound of the abdomen and pelvis was consistent with cholelithiasis. Based on this information I recommended laparoscopic cholecystectomy, upper endoscopy to evaluate the patient's symptoms. Risks and complications of the surgery were discussed with the patient in advance particularly the possibility of conversion to an open surgery, bleeding, infection, obstruction, deep vein thrombosis or pulmonary embolism, bile leak or major bile duct injury that may require surgical intervention. The patient understood the risks and was in agreement with the plan. PROCEDURE: After informed consent was obtained by the patient, the patient was transferred to the Operating Room and was placed in the supine position. The patient was given preoperative antibiotics and after successful induction of general anesthesia, pneumatic compression devices were placed. The patient was then prepped and draped in the usual sterile manner and abdominal access was established with the Cindy technique. The abdomen was insufflated with C02 to a pressure of 15 mmHg. A 5 mm Versi-step port was placed, slightly to the right and superior from the umbilicus. The 5 mm camera was introduced. We inspected the area where port had been placed and there was no injury. The patient was then placed initially in a steep reverse Trendelenburg position and three additional ports were placed, specifically a 12 mm Versi-step port just to the right of the midline below the xiphoid process and two 5 mm Versi-step ports at the right upper quadrant and right flank. At that point the gallbladder was retracted cephalad and laterally. The peritoneal attachments of the gallbladder at the triangle of Calot posteriorly and anteriorly were taken down. The cystic duct and artery were both seen. They were completely dissected free, skeletonized all the way to the infundibulum of the gallbladder . In a similar fashion we also cleaned the liver bed just behind the cystic artery to make sure there was no additional structures in this area. Once we confirmed that both structures were entering into the gallbladder and there were no other structures in the area, they were both clipped with two clips proximally, one distally and were cut in-between. We then using the electrocautery we slowly took down the gallbladder from the liver bed. This was difficult as the gallbladder was distended and it was densely adherent to the liver bed. In addition, the liver bed was friable. Small areas of bleeding from the liver parenchyma were controlled with the cautery and with surgicel. After the gallbladder was completely detached from the liver bed, it was placed in an EndoCatch bag and was removed without difficulty from the xiphoid port. We then inspected the clips at the cystic duct and artery and were both in place. There was no active bleeding from the liver bed. A piece of surgicel was left in the liver bed prophylactically for hemostasis. At that point the patient was placed in supine position, we deflated the abdomen and we removed all ports under direct vision and no bleeding was noted from any of the port sites. The fascia of the 12 mm port was closed using a #1 Polysorb suture. 30cc of Ropivacaine plain were used to infiltrate the fascial closure as well as all skin incisions. A total of 4ml of Zynrelef was applied in the Cindy wound. The wounds were irrigated with saline mixed with antibiotic solution and then the skin was closed with 4-0 Monocryl subcuticular sutures antibiotic-coated. Steri-strips and OpSites were used to cover all incisions. The patient extubated and was transferred in stable condition to the Recovery Room for further care. I was present and performed all steps of the procedure. Ms. Llamas was the human resources assistant. Marin Gonzalez M.D., Ph.D., F.A.C.S. Surgeon: Rufino Gonzalez MD Anesthesia: GETA, local and other (TAP block and 4ml Zynrelef) Was an Rpg Programmer used for this Procedure?: No Rpg Programmer: Dinora Llamas Estimated blood loss (mL): 30 IV fluids (mL): 1,500 Urine output (mL): 0 (No Ricardo to record) Pathology: other (Gallbladder) Condition: stable Disposition: PACU
[2022-06-25] MEDS: HYDROmorphone HCl 0.5 MG/0.5 ML SYRINGE 0.25 MG IVPUSH ×3 (14:26→15:02)
[2022-06-25 15:53] LABS: Hematocrit 40.7 % (37.0-47.0); Hemoglobin 13.6 g/dl (12.0-16.0)
== END 2022-06-25 17:00 | disposition home or self-care (01) ==
PROVIDERS: Physician Assistant Surgical; Visit Provider Surgery
PROC: 0FT44ZZ Resection of Gallbladder, Percutaneous Endoscopic Approach (ICD-10-PCS; CPT 47562; principal; 2022-06-25 11:30)
DX: K80.10 Calculus of gallbladder with chronic cholecystitis without obstruction (principal); I10 Essential (primary) hypertension; Z98.84 Bariatric surgery status; Z20.822 Contact with and (suspected) exposure to COVID-19
CPT/HCPCS: 47562; 36415; 85014; 85018; 87635; 88304; C9088; J0131; J0690; J1100; J1170; J2250; J2405; J2550; J2795; J3010

== ENCOUNTER → 2022-07-23 11:03 | Outpatient (BNVA) | payer OTHER, SELFPAY | PROVIDERS: Visit Provider Physician Assistant Surgical | DX: Z90.49 Acquired absence of other specified parts of digestive tract (principal) | CPT/HCPCS: 99212 ==

== ENCOUNTER → 2022-10-21 08:28 | Outpatient (BNVA) | payer OTHER, SELFPAY | PROVIDERS: Visit Provider Physician Assistant Surgical ==

== ENCOUNTER 2022-10-21 09:20 | Outpatient (REF) | payer OTHER, SELFPAY ==
[2022-10-21 09:40] LABS: MANUAL DIFF FLAG NO
[2022-10-21 09:58] LABS: Basophils Percent Auto 0.5 % (0-2); Eosinophils Absolute Auto 0.1 X10*3/uL (0.0-0.4); Eosinophils Percent Auto 1.5 % (0-4); Hematocrit 37.9 % (37.0-47.0); Hemoglobin 12.7 g/dl (12.0-16.0); Imm Gran Abs Auto 0.02 X10*3/uL (0.00-0.03); Imm Gran Pct Auto 0.3 % (0.0-0.4); Lymphocytes Absolute Auto 1.9 X10*3/uL (1.2-4.9); Lymphocytes Percent Auto 31.1 % (20-40); Mean Corpuscular HGB Conc 33.5 g/dl (31.0-35.0); Mean Corpuscular Hemoglobin 32.5 pg (27.0-33.0); Mean Corpuscular Volume 96.9 fL (80.0-98.0); Mean Platelet Volume 11.7 fL (9.4-12.3); Monocytes Absolute Auto 0.4 X10*3/uL (0.1-1.2); Monocytes Percent Auto 7.2 % (2-11); Neutrophils Absolute Auto 3.6 x10*3/uL (2.0-8.3); Neutrophils Percent Auto 59.4 % (45-73); Platelet Count 171 X10*3/uL (160-400); Red Blood Count 3.91 X10*6/uL (4.20-5.50); Red Cell Distribution Width 12.3 % (11.0-16.0); White Blood Count 6.1 X10*3/uL (4.8-10.8)
[2022-10-21 10:07] LABS: Estimated Average Glucose 97 mg/dL
[2022-10-21 10:28] LABS: Anion Gap 9 (12-20); Blood Urea Nitrogen 17 mg/dL (9-16); C Reactive Protein 0.19 mg/dL (< or = 0.50); Calcium 8.7 mg/dL (8.4-10.2); Carbon Dioxide 28 mmol/L (22-29); Chloride 107 mmol/L (96-108); Cholesterol 153 mg/dL; Estimated Glomerular Filt Rate > 60; Glucose Random 76 mg/dL (60-115); HDL Cholesterol 60 mg/dL; Iron 111 mcg/dL (30-160); LDL Cholesterol Calculated 85 mg/dl; Percent Iron Saturation 49 % (15-50); Potassium 4.2 mmol/L (3.3-5.1); Sodium 140 mmol/L (135-145); Total Iron Binding Capacity 227 mcg/dL (228-428); Triglycerides 44 mg/dL; Unsaturated Iron Binding 116 ug/dL
[2022-10-21 11:00] LABS: Ferritin 33 ng/mL (10-250); Folate 7.6 ng/mL (> or = 4.0); Insulin 9 uU/mL (2-29); TSH reflex Free T4 1.41 uIU/mL (0.32-4.0); Vitamin B12 470 pg/mL (200-900); Vitamin D 25-OH Total 52.2 ng/mL (>30)
[2022-10-24 06:13] LABS: Zinc 58 mcg/dL (60-130)
[2022-10-25 23:04] LABS: Vitamin A 52 mcg/dL (38-98)
[2022-10-28 21:49] LABS: Calcium (PTHI) 8.7 mg/dL (8.6-10.2); PTHI 19 pg/mL (16-77)
[2022-10-29 17:03] LABS: Vitamin B1 39 nmol/L (8-30)
== END 2022-10-21 09:21 | disposition home or self-care (01) ==
LOC: HO.LAB 09:20
PROVIDERS: PCP Family Medicine; Visit Provider Physician Assistant Surgical
DX: E66.9 Obesity, unspecified (principal); Z90.49 Acquired absence of other specified parts of digestive tract
CPT/HCPCS: 36415; 80048; 80061; 82306; 82607; 82728; 82746; 83036; 83525; 83540; 83970; 84425; 84443; 84590; 84630; 85025; 86140; 99212

== ENCOUNTER → 2023-01-20 10:06 | Outpatient (BNVA) | payer OTHER, SELFPAY | PROVIDERS: Visit Provider Physician Assistant Surgical | DX: E66.9 Obesity, unspecified (principal); Z68.29 Body mass index [BMI] 29.0-29.9, adult; Z90.49 Acquired absence of other specified parts of digestive tract | CPT/HCPCS: 99212 ==

== ENCOUNTER 2023-04-21 10:07 | Outpatient (REF) | payer OTHER, SELFPAY ==
[2023-04-21 11:26] LABS: MANUAL DIFF FLAG NO
[2023-04-21 12:05] LABS: Basophils Percent Auto 0.7 % (0-2); Eosinophils Absolute Auto 0.1 X10*3/uL (0.0-0.4); Eosinophils Percent Auto 2.3 % (0-4); Hematocrit 39.1 % (37.0-47.0); Hemoglobin 12.7 g/dl (12.0-16.0); Imm Gran Abs Auto 0.02 X10*3/uL (0.00-0.03); Imm Gran Pct Auto 0.3 % (0.0-0.4); Lymphocytes Percent Auto 35.3 % (20-40); Mean Corpuscular HGB Conc 32.5 g/dl (31.0-35.0); Mean Corpuscular Hemoglobin 31.1 pg (27.0-33.0); Mean Corpuscular Volume 95.6 fL (80.0-98.0); Mean Platelet Volume 11.7 fL (9.4-12.3); Monocytes Absolute Auto 0.3 X10*3/uL (0.1-1.2); Monocytes Percent Auto 5.8 % (2-11); Neutrophils Absolute Auto 3.2 x10*3/uL (2.0-8.3); Neutrophils Percent Auto 55.6 % (45-73); Platelet Count 188 X10*3/uL (160-400); Red Blood Count 4.09 X10*6/uL (4.20-5.50); Red Cell Distribution Width 12.1 % (11.0-16.0); White Blood Count 5.7 X10*3/uL (4.8-10.8)
[2023-04-21 12:11] LABS: Estimated Average Glucose 103 mg/dL; Hemoglobin A1C 96.3879 umol/L; Hemoglobin A1c % 5.2 % (<6.0)
[2023-04-21 12:56] LABS: Anion Gap 11 (12-20); Blood Urea Nitrogen 17 mg/dL (9-16); C Reactive Protein < 0.10 mg/dL (< or = 0.50); Calcium 9.7 mg/dL (8.4-10.2); Carbon Dioxide 29 mmol/L (22-29); Chloride 106 mmol/L (96-108); Cholesterol 185 mg/dL (<200); Estimated Glomerular Filt Rate > 60; Glucose Random 91 mg/dL (60-115); HDL Cholesterol 73 mg/dL (>40); Iron 126 mcg/dL (30-160); LDL Cholesterol Calculated 102 mg/dL (<100); Percent Iron Saturation 45 % (15-50); Potassium 4.4 mmol/L (3.3-5.1); Sodium 142 mmol/L (135-145); Total Iron Binding Capacity 283 mcg/dL (228-428); Triglycerides 54 mg/dL (<150); Unsaturated Iron Binding 157 ug/dL
[2023-04-21 13:05] LABS: Folate 7.3 ng/mL (> or = 4.0); Vitamin B12 618 pg/mL (200-900)
[2023-04-21 13:14] LABS: Ferritin 23 ng/mL (10-250); Insulin 4 uU/mL (2-29); TSH reflex Free T4 1.07 uIU/mL (0.32-4.0); Vitamin D 25-OH Total 49.7 ng/mL (>30)
[2023-04-22 14:43] LABS: Calcium (PTHI) 9.3 mg/dL (8.6-10.2); PTHI 9 pg/mL (16-77)
[2023-04-24 06:09] LABS: Zinc 69 mcg/dL (60-130)
[2023-04-25 03:14] LABS: Vitamin A 46 mcg/dL (38-98)
[2023-04-25 17:28] LABS: Vitamin B1 43 nmol/L (8-30)
== END 2023-04-21 10:08 | disposition home or self-care (01) ==
LOC: HO.LAB 10:07
PROVIDERS: PCP Family Medicine; Visit Provider Physician Assistant Surgical
DX: E66.3 Overweight (principal); E53.8 Deficiency of other specified B group vitamins; Z71.3 Dietary counseling and surveillance; Z98.84 Bariatric surgery status; Z68.28 Body mass index [BMI] 28.0-28.9, adult
CPT/HCPCS: 36415; 80048; 80061; 82306; 82607; 82728; 82746; 83036; 83525; 83540; 83970; 84425; 84443; 84590; 84630; 85025; 86140; 99212

== ENCOUNTER 2023-04-21 10:07 | Outpatient (AMB) | payer OTHER, SELFPAY ==
--- NOTE | 2023-04-21 10:10 | A.OFFVIS_ITS ---
Intake VS Expanded 04/21/23 10:14 BP 120/69 Blood Pressure Location Rt brachial Blood Pressure Position Sitting Pulse 70 Pulse Source Pulse Oximeter Temp 98.3 F Temperature Source Temporal Artery Scan Pulse Oximetry 98 Oxygen Delivery Method Room Air Height 5 ft 1 in Weight 151 lb 3.2 oz BMI 28.6 Body Fat % 33.7 Body Fat Mass 51.0 Fat Free Mass 100. 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 She developed RUQ abd pain and found to have symptomatic cholelithiasis and underwent uneventful lap radha on 06/25/22.? Presents for 1 year post op LSG visit. Weight today is 151.2 pounds, with a BMI of 28.5.? There has been a 96.6 pound weight loss,(initial weight 247.8 pounds) since starting the program on 02/15/22 reflecting a 38.9% total body weight loss and a weight loss of 61.3 pounds since surgery (operative weight 212.5 pounds) reflecting a 28.8% TBWL since surgery.? Reports infrequent but normal bowel movements every 1-2 days and uses stool softeners regularly.?? She reports she is doing well and is satisfied with her current meal plan Present meal plan includes: 3 orgain shakes, 2 scoops, 1 scoop, 1 sc oop. meal 5 forks/5 forks protein pudding 4 oz as needed, 3 x per week 48 oz fulids?? ? Exercise routine includes: 1/2 mile walk daily in driveway gym 3 x per week treadmill/bike/starirs 300 calories Any post op complications: none GISSELLE: never DM: never HTN: resolved Hyperlipidemia: never GERD:?0-5 scale ??0 = no symptoms ??1 = symptoms noticeable but not bothersome 2 =symptoms bothersome but not daily ? 3 = symptoms bothersome and daily 4 = symptoms affect daily activities 5 = symptoms are incapacitating, unable to do daily activities ? How bad is the heartburn: 0 ? Heartburn while lying down: 0 ? Heartburn when standing up: 0 ? Heartburn after meals: 0 ? Does heartburn change your diet: 0 ? Does heartburn wake you up from sleep: 0 ? Do you have difficulty swallowin ? Do you have pain with swallowin ? If you take medicine for your reflux, does this affect your daily life: 0 Satisfaction with present condition - satisfied or not satisfied: satisfied [facility] Medical History Psoriasis DJD (degenerative joint disease) PONV (postoperative nausea and vomiting) HTN (hypertension) Surgical History H/O gastric sleeve Hx of tubal ligation History of bilateral breast implants Hx of mastectomy Hx of colonoscopy Hx of shoulder surgery Family History Mother COPD (chronic obstructive pulmonary disease) Father No problems noted. Daughter No problems noted. Daughter No problems noted. Daughter No problems noted. Daughter No problems noted. Social History Household Members: Spouse Housing: House Are you a primary reproductive healthcare assistant to a significant other at home: Yes ( handicapped daughter) Do you presently have visiting nurse or other home services: No Alcohol intake: current Alcohol intake frequency: holidays/special occasions only Patient Tobacco Use Status: Former Tobacco user Quit Date: 2011 Tobacco use type: Cigarette Second Hand Smoke Exposure: No service: No Current occupational status: employed Review of Systems Const All systems reviewed & are unremarkable except as noted in HPI and below Physical Exam Const General: cooperative and no acute distress Orientation/consciousness: patient oriented x3 Resp Effort & Inspection: normal respiratory effort Auscultation: clear to auscultation bilaterally Cardio Rate: regular rate Rhythm: regular rhythm GI Inspection: Yes normal to inspection and Yes incision (well healed) Palpation (GI): Soft to palpation and no masses Neuro General: patient oriented x3 Assessment & Plan Assessment & Plan (1) Overweight (BMI 25.0-29.9): Code(s): E66.3 - Overweight Plan: continue meal plan and text if any questions begin to incorporate weight training at the gym check 1 year labs rtc video 6 weeks Orders: Orders Insulin Today E53.8 - Deficiency of other specified B group vitamins, E66.3 - Overweight, Z98.84 - Bariatric surgery status Vitamin B12 and Folate Today E53.8 - Deficiency of other specified B group vitamins, E66.3 - Overweight, Z98.84 - Bariatric surgery status C Reactive Protein Today E53.8 - Deficiency of other specified B group vitamins, E66.3 - Overweight, Z98.84 - Bariatric surgery status PTHI Today E53.8 - Deficiency of other specified B group vitamins, E66.3 - Overweight, Z98.84 - Bariatric surgery status TSH reflex Free T4 Today E53.8 - Deficiency of other specified B group vitamins, E66.3 - Overweight, Z98.84 - Bariatric surgery status Basic Metabolic Panel Today E53.8 - Deficiency of other specified B group vitamins, E66.3 - Overweight, Z98.84 - Bariatric surgery status Lipid Panel Today E53.8 - Deficiency of other specified B group vitamins, E66.3 - Overweight, Z98.84 - Bariatric surgery status IRON PROFILE Today E53.8 - Deficiency of other specified B group vitamins, E66.3 - Overweight, Z98.84 - Bariatric surgery status Complete Blood Count Auto Diff Today E53.8 - Deficiency of other specified B group vitamins, E66.3 - Overweight, Z98.84 - Bariatric surgery status Zinc Today E53.8 - Deficiency of other specified B group vitamins, E66.3 - Overweight, Z98.84 - Bariatric surgery status Vitamin B1 Today E53.8 - Deficiency of other specified B group vitamins, E66.3 - Overweight, Z98.84 - Bariatric surgery status Vitamin A Today E53.8 - Deficiency of other specified B group vitamins, E66.3 - Overweight, Z98.84 - Bariatric surgery status Ferritin Today E53.8 - Deficiency of other specified B group vitamins, E66.3 - Overweight, Z98.84 - Bariatric surgery status Vitamin D 25-OH Total Today E53.8 - Deficiency of other specified B group vitamins, E66.3 - Overweight, Z98.84 - Bariatric surgery status Hemoglobin A1c Today E53.8 - Deficiency of other specified B group vitamins, E66.3 - Overweight, Z98.84 - Bariatric surgery status Coding Level of Care Code Est Pt Level 4 (89682) Diagnoses Overweight (BMI 25.0-29.9) E66.3 Time Spent (min) 40
[2023-04-21 10:14] VITALS: BP 120/69; PULSE 70; TEMP 36.8; O2SAT 98; BMI 28.6
== END 2023-04-21 10:41 | disposition home or self-care (01) ==
PROVIDERS: PCP Family Medicine; Visit Provider Physician Assistant Surgical
DX: E66.3 Overweight (principal); Z68.28 Body mass index [BMI] 28.0-28.9, adult
CPT/HCPCS: 99214

== ENCOUNTER 2024-07-15 09:56 | Outpatient (AMB) | payer OTHER, SELFPAY ==
--- NOTE | 2024-07-15 09:29 | MHC.OFFVISWM ---
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 She developed RUQ abd pain and found to have symptomatic cholelithiasis and underwent uneventful lap radha on 06/25/22.? Presents for 2 year 3 month post op LSG visit. Has not been seen in over a year. Weight today is 166 pounds, with a BMI of 31.4.? There has been a 96.6 pound weight loss,(initial weight 247.8 pounds) since starting the program on 02/15/22 reflecting a 38.9% total body weight loss and a weight loss of 61.3 pounds since surgery (operative weight 212.5 pounds) reflecting a 28.8% TBWL since surgery.? Reports infrequent but normal bowel movements every 1-2 days and uses stool softeners regularly.?? She reports she has had several issuers over the last year including uterine fibroids and ovarian cysts. Present meal plan includes: 2 orgain shakes, 1 scoop each mixed in unsweetened almond milk meal 5 forks/5 forks 40 oz fulids?? ? Exercise routine includes: walking at home, nothing formal gym membership to pf Any post op complications: none GISSELLE: never DM: never HTN: resolved Hyperlipidemia: never GERD:?0-5 scale ??0 = no symptoms ??1 = symptoms noticeable but not bothersome 2 =symptoms bothersome but not daily ? 3 = symptoms bothersome and daily 4 = symptoms affect daily activities 5 = symptoms are incapacitating, unable to do daily activities [facility] Medical History Psoriasis DJD (degenerative joint disease) PONV (postoperative nausea and vomiting) HTN (hypertension) Surgical History H/O gastric sleeve Hx of tubal ligation History of bilateral breast implants Hx of mastectomy Hx of colonoscopy Hx of shoulder surgery Family History Mother COPD (chronic obstructive pulmonary disease) Father No problems noted. Daughter No problems noted. Daughter No problems noted. Daughter No problems noted. Daughter No problems noted. Social History Household Members: Spouse Housing: House Are you a primary manager primary care to a significant other at home: Yes ( handicapped daughter) Do you presently have visiting nurse or other home services: No Alcohol intake: current Alcohol intake frequency: holidays/special occasions only Patient Tobacco Use Status: Former Tobacco user Tobacco use type: Cigarette Second Hand Smoke Exposure: No service: No Current occupational status: employed Telehealth Telehealth Telehealth Platform: Telephone Location of provider rendering services: practice address Location of patient: other Patient Identification confirmed using: Name, : Yes Telehealth method: voice only Patient verbally consented to treatment: Yes Patient verbally consented to billing insurance company: Yes Patient informed of any privacy concerns related to visit: Yes Minutes spent on Phone/Video with Pt.: 20 Assessment & Plan Assessment & Plan (1) S/P laparoscopic sleeve gastrectomy: Code(s): Z98.84 - Bariatric surgery status Category: Surgical Plan: Patient wishes to utilize premier protein ready to drink shake. Premier protein ready to drink shake x1 Premier protein ready to drink shake 4 oz mixed with 6-8 oz of unsweetened almond milk Meal with 6 forks of protein and 5 forks of vegetables May have an apple, pear, kiwi or berries if needed Discussed the importance of exercise and its impact on her activities. She is reporting a low back problem and she is going to try different machines at the gym including recumbent bike which will hopefully cause the least amount of impact on her back. She is doing this in an effort to determine what would be the best machine to purchase at home. Goal is to burn 300 calories per day, 7 days per week or 2000 calories per week. Check yearly follow-up labs Return to clinic 4-6 weeks Encouraged to text weight weekly and text with any questions or concerns (2) Uterine fibroid: Code(s): D25.9 - Leiomyoma of uterus, unspecified Category: Medical Plan: discussed [facility] Orders: Orders Lipid Panel Today E20.9 - Hypoparathyroidism, unspecified, E53.8 - Deficiency of other specified B group vitamins, Z98.84 - Bariatric surgery status IRON PROFILE Today E20.9 - Hypoparathyroidism, unspecified, E53.8 - Deficiency of other specified B group vitamins, Z98.84 - Bariatric surgery status Vitamin B1 Today E20.9 - Hypoparathyroidism, unspecified, E53.8 - Deficiency of other specified B group vitamins, Z98.84 - Bariatric surgery status TSH reflex Free T4 Today E20.9 - Hypoparathyroidism, unspecified, E53.8 - Deficiency of other specified B group vitamins, Z98.84 - Bariatric surgery status Ferritin Today E20.9 - Hypoparathyroidism, unspecified, E53.8 - Deficiency of other specified B group vitamins, Z98.84 - Bariatric surgery status Insulin Today E20.9 - Hypoparathyroidism, unspecified, E53.8 - Deficiency of other specified B group vitamins, Z98.84 - Bariatric surgery status Hemoglobin A1c Today E20.9 - Hypoparathyroidism, unspecified, E53.8 - Deficiency of other specified B group vitamins, Z98.84 - Bariatric surgery status Complete Blood Count Auto Diff Today E20.9 - Hypoparathyroidism, unspecified, E53.8 - Deficiency of other specified B group vitamins, Z98.84 - Bariatric surgery status Comprehensive Met. Panel Today E20.9 - Hypoparathyroidism, unspecified, E53.8 - Deficiency of other specified B group vitamins, Z98.84 - Bariatric surgery status Vitamin B12 and Folate Today E20.9 - Hypoparathyroidism, unspecified, E53.8 - Deficiency of other specified B group vitamins, Z98.84 - Bariatric surgery status Zinc Today E20.9 - Hypoparathyroidism, unspecified, E53.8 - Deficiency of other specified B group vitamins, Z98.84 - Bariatric surgery status C Reactive Protein Today E20.9 - Hypoparathyroidism, unspecified, E53.8 - Deficiency of other specified B group vitamins, Z98.84 - Bariatric surgery status Vitamin A Today E20.9 - Hypoparathyroidism, unspecified, E53.8 - Deficiency of other specified B group vitamins, Z98.84 - Bariatric surgery status Vitamin D 25-OH Total Today E20.9 - Hypoparathyroidism, unspecified, E53.8 - Deficiency of other specified B group vitamins, Z98.84 - Bariatric surgery status
[2024-07-15 09:30] VITALS: BMI 31.4
== END 2024-07-15 09:59 | disposition home or self-care (01) ==
LOC: HO.HBS 09:56
PROVIDERS: PCP Family Medicine; Visit Provider Physician Assistant Surgical
DX: D25.9 Leiomyoma of uterus, unspecified (principal); Z98.84 Bariatric surgery status
CPT/HCPCS: 99214; G2211

== ENCOUNTER 2024-08-27 10:31 | Outpatient (AMB) | payer OTHER, SELFPAY ==
--- NOTE | 2024-08-27 08:52 | MHC.OFFVISWM ---
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 She developed RUQ abd pain and found to have symptomatic cholelithiasis and underwent uneventful lap radha on 06/25/22.? Presents for 2 year 4 month post op LSG visit. Weight today is 169.6 pounds, with a BMI of 32.? There has been a 78.2 pound weight loss,(initial weight 247.8 pounds) since starting the program on 02/15/22 reflecting a 31.5% total body weight loss and a weight loss of 42.9 pounds since surgery (operative weight 212.5 pounds) reflecting a 20.1% TBWL since surgery.? Reports infrequent but normal bowel movements every 1-2 days and uses stool softeners regularly.?? She reports she has had several issuers over the last year including uterine fibroids and ovarian cysts. Following up with PCP and had MRI for her back. Going to go to a configuration specialist. They are also investigating if she has MS. She has been adding in a 22 gm scoop of protein powder and sometimes adds this if she misses a shake Present meal plan includes: Premier protein ready to drink shake x1 Premier protein ready to drink shake 4 oz mixed with 6-8 oz of unsweetened almond milk Meal with 6 forks of protein and 5 forks of vegetables May have an apple, pear, kiwi or berries if needed 40 oz fulids?? ? Exercise routine includes: due to back pain, walking is ok but only 3 good days out of 7. Walking outside recumbent bike was painful COUNT INCLUDES THE [facility] Medical History Psoriasis DJD (degenerative joint disease) PONV (postoperative nausea and vomiting) HTN (hypertension) Surgical History H/O gastric sleeve Hx of tubal ligation History of bilateral breast implants Hx of mastectomy Hx of colonoscopy Hx of shoulder surgery Family History Mother COPD (chronic obstructive pulmonary disease) Father No problems noted. Daughter No problems noted. Daughter No problems noted. Daughter No problems noted. Daughter No problems noted. Social History Household Members: Spouse Housing: House Are you a primary ostomy care nurse to a significant other at home: Yes ( handicapped daughter) Do you presently have visiting nurse or other home services: No Alcohol intake: current Alcohol intake frequency: holidays/special occasions only Patient Tobacco Use Status: Former Tobacco user Tobacco use type: Cigarette Second Hand Smoke Exposure: No service: No Current occupational status: employed Physical Exam Vital Signs: BMI result Body Mass Index 32.0 Telehealth Telehealth Telehealth Platform: Telephone Location of provider rendering services: practice address Location of patient: address on file Patient Identification confirmed using: Name, : Yes Telehealth method: voice only Patient verbally consented to treatment: Yes Patient verbally consented to billing insurance company: Yes Patient informed of any privacy concerns related to visit: Yes Minutes spent on Phone/Video with Pt.: 15 Assessment & Plan Assessment & Plan (1) S/P laparoscopic sleeve gastrectomy: Code(s): Z98.84 - Bariatric surgery status Category: Surgical Plan: Patient has had chronic intermittent back pain that is inhibiting her exercise. She is able to walk outside but has difficulty on the treadmill. She had difficulty with the stationary bike. Encouraged her to look into joining the [facility] near her home so that she may either walk in the pool or swim. This may be of benefit to her as it will have the least amount of impact on her joints. Additionally, she had been using seeq 22 g per scoop protein powder intermittently. I suggested that she may have 1 scoop if shear to replace her 1st shake and half scoop as she is to replace her 2nd shake. Not to be used in addition to her current meal plan. Encouraged to exercise as she is able. She is investigating with her primary care provider the etiology of her low back pain. She had an MRI but does not know the results yet. We will have her follow-up in the office in approximately 2 months. Encouraged to text weekly her weight is and with any questions or concerns.
[2024-08-27 08:53] VITALS: BMI 32.0
--- OUTSIDE RECORDS SUMMARY | 2024-08-27 11:37 | XMS_ITS | Clinical Summary ---
Author Organization [facility] Address [address] [place] [address] Care Team Providers Care Processing Archivist Name Role Phone Claude Coles Primary Care Provider [phone] Allergies No known active allergies Medications risankizumab-rz aa (Skyrizi) 150mg/1.66mL(75 mg/0.83 mL x2) syringe kit Inject under the skin. 0 Active diazePAM (VALIUM) 5 mg tablet Take 1 tablet (5 mg total) by mouth every 8 hours as needed for muscle spasms. 10 tablet 4 Active acetaminophen (TYLENOL) 325 mg tablet Take 2 tablets (650 mg total) by mouth every 6 hours as needed for pain. 60 tablet 4 Active ibuprofen (MOTRIN) 600 mg tablet Take 1 tablet (600 mg total) by mouth every 6 hours as needed for pain. 30 tablet 4 Active lidocaine (LIDODERM) 5% patch Apply 1 patch topically to the affected area once a day. Apply patch and leave on for 12 hours, then remove and discard patch. After 12 hours, apply new patch. 15 patch 4 Active Encounters Date Type Department Care Team Description 08/17/2024 Orders Only [facility] FERGUSON @ [facility] [address] [place] [address] Claude Coles Radiculopathy, lumbar region 08/16/2024 4:39 PM EST - 08/16/2024 11:59 PM EST Hospital Encounter [facility] FERGUSON @ [address] [address] Radiculopathy, lumbar region Discharge Disposition: Home or Self Care () 08/16/2024 Orders Only [facility] @ [address] [address] Claude Coles Radiculopathy, lumbar region 06/24/2024 4:31 PM EST - 06/24/2024 11:59 PM EST Hospital Encounter [facility] Ultrasound Department [address] [place] [id number] Free fluid in pelvis; Other ovarian cyst, unspecified side Discharge Disposition: Home or Self Care () 06/20/2024 10:43 AM EST - 06/20/2024 11:55 AM EST Emergency [facility] Emergency Department [address] [place] [id number] Eloy Torres MD Cystitis (Primary Dx) Discharge Disposition: Home or Self Care () from Last 3 Months Immunizations Name Administration Dates Next Due Human Rabies Vaccine from [facility] Fibroblast Culture 06/19/2023,06/12/2023,06/08/2023, 023 Rabies Immune Globulin 06/05/2023 Tetanus Toxoid, Reduced Diph theria Toxoid, and Acellular Pertussis Vaccine, Adsorbed 06/05/2023 Social History Tobacco Use Types Packs/Day Years Used Date Smoking Tobacco: Never Smokeless Tobacco: Never Tobacco Cessation:Counseling Given: Not Answered Alcohol Use Standard Drinks/Week Comments Yes 0 (1 standard drink = 0.6 oz pur e alcohol) Occasional Comments No Sex and Gender Information Value Date Recorded Sex Assigned at Female 05/03/2024 6:12 PM EDT Legal Sex Female 4:57 AM EDT Gender Identity Not on file Sexual Orientation Not on file Last Filed Vital Signs Vital Sign Reading Time Taken Comments Blood Pressure 131/84 06/20/2024 10:40 AM EST Pulse 84 06/20/2024 10:40 AM EST Temperature 36.1 ??C (97 ??F) 06/20/2024 10:40 AM EST Respiratory Rate 20 06/20/2024 10:40 AM EST Oxygen Saturation 98% 06/20/2024 10:40 AM EST Inhaled Oxygen Concentration - - Weight 74.8 kg (165 lb) 06/20/2024 10:40 AM EST Height 154.9 cm (5' 1 ) 06/20/2024 10:40 AM EST Body Mass Index 31.18 06/20/2024 10:40 AM EST Plan of Treatment Health Maintenance Due Date Last Done Comments Cervical Cancer Screening 1977 Cologuard 1977 Colon Cancer Screening 1977 Colonoscopy 1977 FOBT / Fit Test 1977 HIV Screening 1977 HPV and Pap Smear 1977 Pap Smear 1977 Sigmoidoscopy 1977 Hepatitis B Vaccines (1 of 3 - 19+ 3-dose series) 1996 Mammogram 2017 COVID-19 Vaccine (3 - 2023-2 5 season) 2024 12/17/2020, 11/19/2020 Influenza Vaccine (#1) 2024 Alcohol/Substance Use Screening 07/21/2024 Depression Screening and Follow-Up 07/21/2024 Social Drivers of Health Annual Screening 07/21/2024 DTaP,Tdap,and Td Vaccines (2 - Td or Tdap) 06/05/2033 06/05/2023, 09/20/2005 RSV Vaccine (60+ years old a nd patients) (1 - 1-dose 75+ series) 2052 Hepatitis C Screening Completed 03/01/2022 , 03/01/2022 Pneumococcal Vaccine: Pediatric (0-5 Years) and At-Risk Patients (6-64 Years) Aged Out No longer eligible based on patient's age to complete this topic Procedures * Due to [place] state law, this organization might not be sharing negative HIV tests. Procedure Name Priority Date/Time Associated Diagnosis Comments MRI LUMBAR SPINE WO CONTRAST Routine 08/16/2024 6:00 PM EST Radiculopathy, lumbar region US PELVIS NON OB TRANSABDOMINAL AND TRANSVAGINAL COMPLETE Routine 06/24/2024 5:29 PM EST Free fluid in pelvis Other ovarian cyst, unspecified side MICROSCOPIC URINALYSIS ONLY STAT 06/20/2024 11:11 AM EST UA/CULTURE REFLEX STAT 06/20/2024 11: 11 AM EST HCG QUALITATIVE, URINE STAT 4 11:11 AM EST URINALYSIS W/REFLEX TO MICROSCOPIC & CULTURE STAT 06/20/2024 11:11 AM EST HEPATITIS PANEL, ACUTE Routine 5:09 PM EDT from Last 3 Months or Most Recently Relevant to Health Maintenance Results * Due to [place] state law, this organization might not be sharing negative HIV tests. * MRI Lumbar Spine WO Contrast (08/16/2024 6:00 PM EST) Anatomical Region Laterality Modality Spine, L-spine Magnetic Resonan ce 08/17/2024 7:37 AM EST Impressions 08/17/2024 7:42 AM EST Minimal degenerative changes in the visualized spine, more pronounced at the L4- L5 with mild left and kzmp-nb-exwqywlg right neural foraminal narrowing. ??No spinal canal stenosis. If this radiology report contains a blank impression section, it is an incomplete radiology report. ??Please contact the interpreting radiologist or applicable radiology division as soon as possible to obtain the completed interpretation. ? Workstation ID: [id number] Narrative 08/17/2024 7:42 AM EST EXAMINATION: MRI of lumbar spine without contrast TECHNIQUE: Multiplanar and multisequence MR imaging of lumbar spine performed without intravenous contrast administration. Sequences obtained include, Sagittal plane: T1, T2 and STIR Axial plane: T1 and T2 at selected levels CLINICAL INFORMATION: Radiculopathy. COMPARISON: ??Lumbar spine CT of 05/03/2024 FINDINGS: Physiologic lumbar lordosis is preserved. ??Alignment is maintained. Vertebral body height at this maintained. ??No bone marrow signal abnormality. Minimal decrease in vertebral body height and T2 signal in the L4-L5, suggesting early desiccation. ??The conus medullaris terminates at the L1. ??Normal appearance and distribution of the cauda equina nerve roots. Paraspinal muscles appear unremarkable. At the T12-L1 level, there is no spinal canal stenosis or bilateral neural foraminal narrowing. At the L1-L2 level, there is mild diffuse disc bulge along with mild bilateral facet joint arthropathy without causing significant spinal canal stenosis. At the L2-L3 level, there is diffuse disc bulge along with mild bilateral facet joint arthropathy without causing spinal canal stenosis or bilateral neural foraminal narrowing. At the L3-L4 level, there is mild disc bulge and mild thickening of the ligamentum flavum without causing significant spinal canal stenosis or bilateral neural foraminal narrowing. ?? At the L4-L5 level, there is diffuse disc bulge, thickening of the ligamenta flava and bilateral facet joint arthropathy, causing mild left and tycu-xw-hldyzsct right neural foraminal narrowing. ??No spinal canal stenosis. At the L5-S1 level, there is minimal disc bulge and mild bilateral facet joint arthropathy without causing significant spinal canal stenosis or bilateral neuroforamina narrowing. Resulting Agency Comment [id number] Procedure Note Lisa Pedroza MD PhD - 08/17/2024 EXAMINATION: MRI of lumbar spine without contrast TECHNIQUE: Multiplanar and multisequence MR imaging of lumbar spine performed withoutintravenous contrast administration. Sequences obtained include, Sagittal plane: T1, T2 and STIR Axial plane: T1 and T2 at selected levels CLINICAL INFORMATION: Radiculopathy. COMPARISON: Lumbar spine CT of 05/03/2024 FINDINGS: Physiologic lumbar lordosis is preserved. Alignment is maintained. Vertebral body height at this maintained. No bone marrow signalabnormality. Minimal decrease in vertebral body height and T2 signal in the L4-L5,suggesting early desiccation. The conus medullaris terminates at the L1.Normal appearance and distribution of the cauda equina nerve roots. Paraspinal muscles appear unremarkable. At the T12-L1 level, there is no spinal canal stenosis or bilateral neuralforaminal narrowing. At the L1-L2 level, there is mild diffuse disc bulge along with mildbilateral facet joint arthropathy without causing significant spinal canalstenosis. At the L2-L3 level, there is diffuse disc bulge along with mild bilateralfacet joint arthropathy without causing spinal canal stenosis or bilateralneural foraminal narrowing. At the L3-L4 level, there is mild disc bulge and mild thickening of theligamentum flavum without causing significant spinal canal stenosis orbilateral neural foraminal narrowing. At the L4-L5 level, there is diffuse disc bulge, thickening of theligamenta flava and bilateral facet joint arthropathy, causing mild leftand beaf-ro-cvfszqah right neural foraminal narrowing. No spinal canalstenosis. At the L5-S1 level, there is minimal disc bulge and mild bilateral facetjoint arthropathy without causing significant spinal canal stenosis orbilateral neuroforamina narrowing. IMPRESSION: Minimal degenerative changes in the visualized spine, more pronounced atthe L4- L5 with mild left and ivog-cr-wmbgakpt right neural foraminalnarrowing. No spinal canal stenosis. If this radiology report contains a blank impression section, it is anincomplete radiology report. Please contact the interpreting radiologistor applicable radiology division as soon as possible to obtain thecompleted interpretation. Workstation ID: [id number] Claude Coles IM MRI PROCEDURES Final Result * US Pelvis Non OB Transabdominal And Transvaginal Complete (06/24/2024 5:29 PM EST) Anatomical Region Laterality Modality Body, Pelvis N/A Ultrasound Study GA Study Date Study ROSANNE Working ROSANNE (Source) Feta l Weight (Method) 06/24/2024 06/25/2024 2:29 PM EST Impressions 06/25/2024 2:32 PM EST 1. Multiple uterine fibroids with underlying myometrial heterogeneity, favor adenomyosis. 2. Unremarkable sonographic appearance of the ovaries. If this radiology report contains a blank impression section, it is an incomplete radiology report. ??Please contact the interpreting radiologist or applicable radiology division as soon as possible to obtain the completed interpretation. ? Workstation ID: [id number] Narrative 06/25/2024 2:32 PM EST EXAMINATION: PELVIC ULTRASOUND. INDICATION: Recent CT shows fluid in the pelvis, question ovarian cyst. TECHNIQUE: Transabdominal and transvaginal ultrasound imaging of the pelvis was performed. The transvaginal scan was performed for better evaluation of the uterus and adnexa. Color Doppler analysis of the ovaries was performed. COMPARISON: CT of the abdomen and pelvis from 05/03/2024. FINDINGS: UTERUS: The uterus measures 8.5 x 4.3 x 5.0 cm. Cervical nabothian cysts are noted. - Myometrium: Heterogeneous echotexture. A 1.0 cm hypoechoic structure within the posterior myometrium may represent a fibroid or focal adenomyosis. There is a 1.9 cm intramural fibroid at the fundus anteriorly. Additional 1.2 cm right-sided intramural fibroid. Other smaller fibroids are suspected. - Endometrium: Homogeneous, measuring 8 mm. ?? OVARIES/ADNEXA: - The right ovary measures up to 1.6 cm (sweep images). - The left ovary measures 2.4 x 2.6 x 1.7 cm (volume 6 mL). A 1.9 cm dominant follicle is noted in the left ovary. PELVIS: No free fluid. Resulting Agency Comment [id number] Procedure Note Aris Hubbard MD - 06/25/2024 EXAMINATION: PELVIC ULTRASOUND. INDICATION: Recent CT shows fluid in the pelvis, question ovarian cyst. TECHNIQUE: Transabdominal and transvaginal ultrasound imaging of thepelvis was performed. The transvaginal scan was performed for betterevaluation of the uterus and adnexa. Color Doppler analysis of the ovarieswas performed. COMPARISON: CT of the abdomen and pelvis from 05/03/2024. FINDINGS: UTERUS: The uterus measures 8.5 x 4.3 x 5.0 cm. Cervical nabothian cystsare noted. - Myometrium: Heterogeneous echotexture. A 1.0 cm hypoechoic structurewithin the posterior myometrium may represent a fibroid or focaladenomyosis. There is a 1.9 cm intramural fibroid at the fundusanteriorly. Additional 1.2 cm right-sided intramural fibroid. Othersmaller fibroids are suspected. - Endometrium: Homogeneous, measuring 8 mm. OVARIES/ADNEXA: - The right ovary measures up to 1.6 cm (sweep images). - The left ovary measures 2.4 x 2.6 x 1.7 cm (volume 6 mL). A 1.9 cmdominant follicle is noted in the left ovary. PELVIS: No free fluid. IMPRESSION: 1. Multiple uterine fibroids with underlying myometrial heterogeneity,favor adenomyosis. 2. Unremarkable sonographic appearance of the ovaries. If this radiology report contains a blank impression section, it is anincomplete radiology report. Please contact the interpreting radiologistor applicable radiology division as soon as possible to obtain thecompleted interpretation. Workstation ID: [id number] Claude Coles IM US PROCEDURES Final Result * (ABNORMAL) Microscopic Urinalysis Only (06/20/2024 11:11 AM EST) RBC, Urine 40-50(A) None Seen, 0-2 /HPF 06/20/2024 11:37 AM EST [facility] WBC, Urine 20-30(A) None Seen, 0-2 /HPF 06/20/2024 11:37 AM EST [facility] WBC Clumps, Urine 0-2 /HPF 06/20/2024 11:37 AM EST [facility] Squamous Epithelial Cells, Urine 0-2 /HPF 06/20/2024 11:37 AM EST [facility] Bacteria, Urine Moderate(A ) None Seen /HPF 06/20/2024 11:37 AM EST [facility] Urine Urine specimen collection, clean catch / Unknown Non-Blood Collection / Unknown 06/20/2024 11:11 AM EST 06/20/2024 11:23 AM EST Eloy Torres MD LAB URINE ORDERABLES Final Result [facility] [address] [place] [address] [address] [place] [address], [place] [phone] * (ABNORMAL) Urinalysis W/Reflex to Microscopic & Culture (06/20/2024 11:11 AM EST) Color, Urine Yellow Yellow 06/20/2024 11:23 AM EST [facility] Clarity, Urine Clear Clear 06/20/2024 11:23 AM EST [facility] Specific [place], Urine 1.015 1.005 - 1.030 06/20/2024 11:23 AM EST [facility] pH, Urine 7.0 5.0 - 8.0 06/20/2024 11:23 AM EST [facility] Protein, Urine Negative Negative mg/dL 06/20/2024 11:23 AM EST [facility] Glucose, Urine Negative Negative mg/dL 06/20/2024 11:23 AM EST [facility] Ketones, Urine Negative Negative mg/dL 06/20/2024 11:23 AM EST [facility] Bilirubin, Urine Negative Negative 06/20/2024 11:23 AM EST [facility] Blood, Urine Large(A) Negative 06/20/2024 11:23 AM EST [facility] Nitrite, Urine Negative Negative 06/20/2024 11:23 AM EST [facility] Urobilinogen, Urine 0.2 0.2 - 1.0 E.U./dL 06/20/2024 11:23 AM EST [facility] Leukocyte Esterase, Urine Small(A) Negative 06/20/2024 11:23 AM [facility] Urine Urine specimen collection, clean catch / Unknown Non-Blood Collection / Unknown 06/20/2024 11:11 AM EST 06/20/2024 11:13 AM EST [facility] - 06/20/2024 11:23 AM EST Some urinalysis results will not meet the criteria for reflex urine culture although certain urine values may be abnormal. ??Additional testing can be ordered by the provider if clinically warranted. us Eloy Torres MD LAB URINE ORDERABLES Final Result [facility] [address] [place] [address] [address] [place] [address], * HCG Qualitative, Urine (06/20/2024 11:11 AM EST) HCG Qualitative, Urine Negative 06/20/2024 11:26 AM EST [facility] Comment: hCG may be negative in early . ??Suggest repeat testing in 2-4 days if clinically indicated. ??The results of this test should be interpreted with the patient's clinical presentation. Urine Urine specimen collection, clean catch / Unknown Non-Blood Collection / Unknown 06/20/2024 11:11 AM EST 06/20/2024 11:13 AM EST Eloy Torres MD LAB URINE ORDERABLES Final Result [facility] [address] [place] [address], [place] [phone] * Hepatitis Panel, Acute (03/01/2022 5:09 PM EDT) Pathologist [facility] Hepatitis A IgM Antibody Interpretation NONREACTIVE NONREACTIVE . [facility] Hepatitis B Core IgM Antibody Interpretation NONREACTIVE NONREACTIVE . [facility] Comment: Biotin concentrations greater than 150 ng/ml may cause falsely depressed results for HBCAB. Hepatitis B Surface Antigen Interpretation NONREACTIVE NONREACTIVE . [facility] 03/01/2022 5:09 PM EDT Nancy Martin NP LAB BLOOD ORDERABLES Final Resul t Performing Organization Address City/State/[facility] Co de Phone Number [facility] from Last 3 Months or Most Recently Relevant to Health Maintenance Insurance [facility] Care Teams Processing Archivist Relationship Specialty Start Date End Date Claude Coles [address] [place] [address] PCP - General Family Medicine 06/20/24
--- OUTSIDE RECORDS SUMMARY | 2024-08-27 11:38 | XMS_ITS | Encounter Summary ---
Author Organization [facility] Address [address] [place] [address] Care Team Providers Care Hand Woven Carpet And Rug Mender Name Role Phone Claude Coles Primary Care Provider [phone] Reason for Referral * MRI/CAT/PET Scan (Routine) - Closed Specialty Diagnoses / Procedures Referred By Contac t Referred To Contact Radiology Diagnoses Radiculopathy, lumbar region Procedures MRI Lumbar Spine WO Contrast Claude Coles [address] [place] [address] Phone: tel: fax: [facility] @ [address] [address] Phone: tel: fax: Referral ID Status Reason Start Date Expiration Date Visits Re quested Visits Authorized [id number] Closed 07/04/2024 08/30/2024 1 1 Reason for Visit * MRI/CAT/PET Scan (Routine) - Closed Specialty Diagnoses / Procedures Referred By Contac t Referred To Contact Radiology Diagnoses Radiculopathy, lumbar region Procedures MRI Lumbar Spine WO Contrast Claude Coles [address] [place] [address] Phone: tel: fax: [facility] @ [address] [address] Phone: tel: fax: Referral ID Status Reason Start Date Expiration Date Visits Re quested Visits Authorized [id number] Closed 07/04/2024 08/30/2024 1 1 Encounter Details Date Type Department Care Team (Latest Contact Info) Description 08/16/2024 4:39 PM EST - 08/16/2024 11:59 PM EST Hospital Encounter [facility] @ [address] [address] Radiculopathy, lumbar region Discharge Disposition: Home or Self Care () Social History Tobacco Use Types Packs/Day Years Used Date Smoking Tobacco: Never Smokeless Tobacco: Never Alcohol Use Standard Drinks/Week Comments Yes 0 (1 standard drink = 0.6 oz pur e alcohol) Occasional Comments No Sex and Gender Information Value Date Recorded Sex Assigned at Female 05/03/2024 6:12 PM EDT Legal Sex Female 4:57 AM EDT Gender Identity Not on file Sexual Orientation Not on file documented as of this encounter Medications at Time of Discharge acetaminophen (TYLENOL) 325 mg tablet Take 2 tablets (650 mg total) by mouth every 6 hours as needed for pain. 60 tablet 05/03/2024 diazePAM (VALIUM) 5 mg tablet Take 1 tablet (5 mg total) by mouth every 8 hours as needed for muscle spasms. 10 tablet 05/03/2024 ibuprofen (MOTRIN) 600 mg tablet Take 1 tablet (600 mg total) by mouth every 6 hours as needed for pain. 30 tablet 05/03/2024 lidocaine (LIDODERM) 5% patch Apply 1 patch topically to the affected area once a day. Apply patch and leave on for 12 hours, then remove and discard patch. After 12 hours, apply new patch. 15 patch 05/03/2024 risankizumab-rza a (Skyrizi) 150mg/1.66mL(75 mg/0.83 mL x2) syringe kit Inject under the skin. 09/15/2019 documented as of this encounter Plan of Treatment Not on file documented as of this encounter Procedures * Due to [place] state law, this organization might not be sharing negative HIV tests. Procedure Name Priority Date/Time Associated Diagnosis Comments MRI LUMBAR SPINE WO CONTRAST Routine 08/16/2024 6:00 PM EST Radiculopathy, lumbar region documented in this encounter Results * Due to [place] state law, this organization might not be sharing negative HIV tests. * MRI Lumbar Spine WO Contrast (08/16/2024 6:00 PM EST) Anatomical Region Laterality Modality Spine, L-spine Magnetic Resonan ce 08/17/2024 7:37 AM EST Impressions 08/17/2024 7:42 AM EST Minimal degenerative changes in the visualized spine, more pronounced at the L4- L5 with mild left and dctz-mp-zmvxutap right neural foraminal narrowing. ??No spinal canal stenosis. If this radiology report contains a blank impression section, it is an incomplete radiology report. ??Please contact the interpreting radiologist or applicable radiology division as soon as possible to obtain the completed interpretation. ? Workstation ID: [id number] Narrative 08/17/2024 7:42 AM EST EXAMINATION: MRI [...] facet joint arthropathy, causing mild left and gbgp-ea-txwgeinb right neural foraminal narrowing. ??No spinal canal stenosis. At the L5-S1 level, there is minimal disc bulge and mild bilateral facet joint arthropathy without causing significant spinal canal stenosis or bilateral neuroforamina narrowing. Resulting Agency Comment [id number] Procedure Note Lisa Pedroza MD PhD - [...] bilateral facet joint arthropathy, causing mild leftand fiux-wf-azdunxvq right neural foraminal narrowing. No spinal canalstenosis. At the L5-S1 level, there is minimal disc bulge and mild bilateral facetjoint arthropathy without causing significant spinal canal stenosis orbilateral neuroforamina narrowing. IMPRESSION: Minimal degenerative changes in the visualized spine, more pronounced atthe L4- L5 with mild left and egxq-dw-zltprrut right neural foraminalnarrowing. No spinal canal stenosis. If this radiology report contains a blank impression section, it is anincomplete radiology report. Please contact the interpreting radiologistor applicable radiology division as soon as possible to obtain thecompleted interpretation. Workstation ID: [id number] Claude Coles [facility] MRI PROCEDURES Final Result documented in this encounter Visit Diagnoses Diagnosis Radiculopathy, lumbar region Thoracic or lumbosacral neuritis or radiculitis, unspecified documented in this encounter Care Teams Hand Woven Carpet And Rug Mender Relationship Specialty Start Date End Date Claude Coles [address] [place] [id number] PCP - General Family Medicine 06/20/24 documented as of this encounter
--- OUTSIDE RECORDS SUMMARY | 2024-08-27 11:38 | XMS_ITS | Encounter Summary ---
Author Organization [facility] Address [address] [place] [address] Care Team Providers Care Personal Care Assistant Name Role Phone Claude Coels Primary Care Provider [phone] Reason for Referral * MRI/CAT/PET Scan (Routine) - Canceled Specialty Diagnoses / Procedures Referred By Contac t Referred To Contact Radiology Diagnoses Radiculopathy, lumbar region Procedures MRI Lumbar Spine WO Contrast Claude Coles [address] [place] [address] Phone: tel: fax: [facility] @ [address] [address] Phone: tel: fax: Referral ID Status Reason Start Date Expiration Date V isits Requested Visits Authorized [id number] Canceled 07/04/2024 08/30/2024 1 1 Encounter Details Date Type Department Care Team (Late st Contact Info) Description 08/17/2024 Orders Only [facility] @ [address] [address] Claude Coles [address] [place] [address] Radiculopathy, lumbar region Social History Tobacco Use Types Packs/Day Years [...] on file documented as of this encounter Plan of Treatment Scheduled Orders Name Type Priority Associated Diagnoses Orde r Schedule MRI Lumbar Spine WO Contrast Imaging [facility] Routine Radiculopathy, lumbar region 1 Occurrences starting 08/11/2024 until 09/11/2025 documented as of this encounter Visit Diagnoses Diagnosis Radiculopathy, lumbar region Thoracic or lumbosacral neuritis or radiculitis, unspecified documented in this encounter Care Teams Personal Care Assistant Relationship Specialty Start Date End Date Claude Coles [address] [place] [address] PCP - General Family Medicine 06/20/24 documented as of this encounter
--- OUTSIDE RECORDS SUMMARY | 2024-08-27 11:38 | XMS_ITS | Encounter Summary ---
Author Organization [facility] Address [address] [place] [address] Care Team Providers Care Stope Miner Name Role Phone Claude Coles Primary Care Provider [phone] Reason for Referral * MRI/CAT/PET Scan (Routine) - Closed Specialty Diagnoses / Procedures Referred By Contac t Referred To Contact Radiology Diagnoses Radiculopathy, lumbar region Procedures MRI Lumbar Spine WO Contrast Claude Coles [address] [place] [address] Phone: tel: fax: [facility] @ [facility] [address] [place] [address] Phone: tel: fax: Referral ID Status Reason Start Date Expiration Date Visits Re quested Visits Authorized [id number] Closed 07/04/2024 08/30/2024 1 1 Encounter Details Date Type Department Care Team (Late st Contact Info) Description 08/16/2024 Orders Only [facility] @ [facility] [address] [place] [address] Claude Coles [address] [place] [address] Radiculopathy, lumbar region Social History Tobacco Use [...] on file documented as of this encounter Results * Due to [place] state law, this organization might not be sharing negative HIV tests. * MRI Lumbar Spine WO Contrast (08/16/2024 6:00 PM EST) Anatomical Region Laterality Modality Spine, L-spine Magnetic Resonan ce 08/17/2024 7:37 AM EST Impressions 08/17/2024 7:42 AM EST Minimal degenerative changes in the visualized spine, more pronounced at the L4- L5 with mild left and vzoe-nq-blavxzoj right neural foraminal narrowing. ??No spinal canal stenosis. If this radiology report contains a blank impression section, it is an incomplete radiology report. ??Please contact the interpreting radiologist or applicable radiology division as soon as possible to obtain the completed interpretation. ? Workstation ID: [id number] Narrative 08/17/2024 7:42 AM EST EXAMINATION: MRI [...] facet joint arthropathy, causing mild left and ikxu-cs-opadyfyp right neural foraminal narrowing. ??No spinal canal stenosis. At the L5-S1 level, there is minimal disc bulge and mild bilateral facet joint arthropathy without causing significant spinal canal stenosis or bilateral neuroforamina narrowing. Resulting Agency Comment [id number] Procedure Note Lisa Pedroza MD PhD - [...] bilateral facet joint arthropathy, causing mild leftand kcof-qh-yivvyrem right neural foraminal narrowing. No spinal canalstenosis. At the L5-S1 level, there is minimal disc bulge and mild bilateral facetjoint arthropathy without causing significant spinal canal stenosis orbilateral neuroforamina narrowing. IMPRESSION: Minimal degenerative changes in the visualized spine, more pronounced atthe L4- L5 with mild left and ntxz-kb-wokgwsud right neural foraminalnarrowing. No spinal canal stenosis. If this radiology report contains a blank impression section, it is anincomplete radiology report. Please contact the interpreting radiologistor applicable radiology division as soon as possible to obtain thecompleted interpretation. Workstation ID: [id number] Claude Coles [facility] MRI PROCEDURES Final Result documented in this encounter Visit Diagnoses Diagnosis Radiculopathy, lumbar region Thoracic or lumbosacral neuritis or radiculitis, unspecified Radiculopathy, lumbar region Thoracic or lumbosacral neuritis or radiculitis, unspecified documented in this encounter Care Teams Stope Miner Relationship Specialty Start Date End Date Claude Coles [address] [place] [address] PCP - General Family Medicine 06/20/24 documented as of this encounter
--- OUTSIDE RECORDS SUMMARY | 2024-08-27 11:38 | XMS_ITS | Referral Summary ---
Author Organization [facility] Address [address] [place] [address] Care Team Providers Care Ladle Pourer Name Role Phone Claude Coles Primary Care Provider Encounters Date Type Department Care Team Description 08/17/2024 Orders Only [facility] @ [address] [address] Claude Coles Radiculopathy, lumbar region 08/16/2024 4:39 PM EST - 08/16/2024 11:59 PM EST Hospital Encounter [facility] @ [address] [address] Radiculopathy, lumbar region Discharge Disposition: Home or Self Care () 08/16/2024 Orders Only [facility] @ [address] [address] Claude Coles Radiculopathy, lumbar region 06/24/2024 4:31 PM EST - 06/24/2024 11:59 PM EST Hospital Encounter [facility] Ultrasound Department [address] [place] [address] Free fluid in pelvis; Other ovarian cyst, unspecified side Discharge Disposition: Home or Self Care () 06/20/2024 10:43 AM EST - 06/20/2024 11:55 AM EST Emergency [facility] Emergency Department [address] [place] [address] Eloy Torres MD Cystitis (Primary Dx) Discharge Disposition: Home or Self Care () from Last 3 Months Allergies No known active allergies Medications risankizumab-rz [...] apply new patch. 15 patch 4 Active Immunizations Name Administration Dates Next Due Human Rabies Vaccine from [facility] Fibroblast Culture 06/19/2023,06/12/2023,06/08/2023, 023 Rabies Immune [...] 06/20/2024 10:40 AM EST Plan of Treatment Not on file Procedures * Due to [place] Pollen law, this organization might not be sharing [...] 11 AM EST HCG QUALITATIVE, URINE STAT 11:11 AM EST URINALYSIS W/REFLEX TO MICROSCOPIC & CULTURE STAT 06/20/2024 11:11 AM EST HEPATITIS PANEL, ACUTE Routine 5:09 PM EDT from Last 3 Months or Most Recently Relevant to Health Maintenance Results * Due to [place] Pollen law, this organization might not be sharing negative HIV tests. * MRI Lumbar Spine WO Contrast (08/16/2024 6:00 PM EST) Anatomical Region Laterality Modality Spine, L-spine Magnetic Resonan ce 08/17/2024 7:37 AM EST Impressions 08/17/2024 7:42 AM EST Minimal degenerative changes in the visualized spine, more pronounced at the L4- L5 with mild left and bvvc-cc-irrssylb right neural foraminal narrowing. ??No spinal canal stenosis. If this radiology report contains a blank impression section, it is an incomplete radiology report. ??Please contact the interpreting radiologist or applicable radiology division as soon as possible to obtain the completed interpretation. ? Workstation ID: [id number] Narrative 08/17/2024 7:42 AM EST EXAMINATION: MRI [...] facet joint arthropathy, causing mild left and hdwa-cb-roivqdqw right neural foraminal narrowing. ??No spinal canal stenosis. At the L5-S1 level, there is minimal disc bulge and mild bilateral facet joint arthropathy without causing significant spinal canal stenosis or bilateral neuroforamina narrowing. Resulting Agency Comment [id number] Procedure Note Lisa Pedroza MD PhD - [...] bilateral facet joint arthropathy, causing mild leftand turl-ej-bqyafjky right neural foraminal narrowing. No spinal canalstenosis. At the L5-S1 level, there is minimal disc bulge and mild bilateral facetjoint arthropathy without causing significant spinal canal stenosis orbilateral neuroforamina narrowing. IMPRESSION: Minimal degenerative changes in the visualized spine, more pronounced atthe L4- L5 with mild left and foaa-ak-ikbtipuv right neural foraminalnarrowing. No spinal canal stenosis. If this radiology report contains a blank impression section, it is anincomplete radiology report. Please contact the interpreting radiologistor applicable radiology division as soon as possible to obtain thecompleted interpretation. Workstation ID: [id number] Claude Coles IM MRI PROCEDURES Final Result [...] obtain the completed interpretation. ? Workstation ID: [id number] Narrative 06/25/2024 2:32 PM EST EXAMINATION: PELVIC [...] PELVIS: No free fluid. Resulting Agency Comment [id number] Procedure Note Aris Hubbard MD - 06/25/2024 [...] possible to obtain thecompleted interpretation. Workstation ID: [id number] Claude Coles [facility] US PROCEDURES Final Result * (ABNORMAL) Microscopic Urinalysis Only (06/20/2024 11:11 AM EST) RBC, Urine 40-50(A) None Seen, 0-2 /HPF 06/20/2024 11:37 AM EST [facility] WBC, Urine 20-30(A) None Seen, 0-2 /HPF 06/20/2024 11:37 AM EST [facility] WBC Clumps, Urine 0-2 /HPF 06/20/2024 11:37 AM EST [facility] Squamous Epithelial Cells, Urine 0-2 /HPF 06/20/2024 11:37 AM EST [facility] Bacteria, Urine Moderate(A ) None Seen /HPF 06/20/2024 11:37 AM EST [facility] Urine Urine specimen collection, clean catch / Unknown Non-Blood Collection / Unknown 06/20/2024 11:11 AM EST 06/20/2024 11:23 AM EST Eloy Torres MD LAB URINE ORDERABLES Final Result [facility] [address] [place] [address], [place] [phone] * (ABNORMAL) Urinalysis W/Reflex to Microscopic & Culture (06/20/2024 11:11 AM EST) Color, Urine Yellow Yellow 06/20/2024 11:23 AM EST [facility] Clarity, Urine Clear Clear 06/20/2024 11:23 AM EST [facility] Specific [place], Urine 1.015 1.005 - 1.030 06/20/2024 11:23 AM EST [facility] pH, Urine 7.0 5.0 - 8.0 06/20/2024 11:23 AM EST [facility] Protein, Urine Negative Negative mg/dL 06/20/2024 11:23 AM EST [facility] Glucose, Urine Negative Negative mg/dL 06/20/2024 11:23 AM EST [facility] Ketones, Urine Negative Negative mg/dL 06/20/2024 11:23 AM EST [facility] Bilirubin, Urine Negative Negative 06/20/2024 11:23 AM EST [facility] Blood, Urine Large(A) Negative 06/20/2024 11:23 AM EST [facility] Nitrite, Urine Negative Negative 06/20/2024 11:23 AM EST [facility] Urobilinogen, Urine 0.2 0.2 - 1.0 E.U./dL 06/20/2024 11:23 AM EST [facility] Leukocyte Esterase, Urine Small(A) Negative 06/20/2024 11:23 AM EST [facility] Urine Urine specimen collection, clean catch / Unknown Non-Blood Collection / Unknown 06/20/2024 11:11 AM EST 06/20/2024 11:13 AM EST Narrative [facility] - 06/20/2024 11:23 AM EST Some urinalysis results will not meet the criteria for reflex urine culture although certain urine values may be abnormal. ??Additional testing can be ordered by the provider if clinically warranted. Eloy Torres MD LAB URINE ORDERABLES Final Result Performing Organization Address [facility] de Phone Number [facility] [address] [address], [place] [phone] * HCG Qualitative, Urine (06/20/2024 11:11 AM EST) HCG Qualitative, Urine Negative 06/20/2024 11:26 AM EST [facility] Comment: hCG may be negative in early . ??Suggest repeat testing in 2-4 days if clinically indicated. ??The results of this test should be interpreted with the patient's clinical presentation. Urine Urine specimen collection, clean catch / Unknown Non-Blood Collection / Unknown 06/20/2024 11:11 AM EST 06/20/2024 11:13 AM EST us Eloy Torres MD LAB URINE ORDERABLES Final Result Performing Organization Address [facility] de Phone Number [facility] [address] [place] [address], [place] [phone] * Hepatitis Panel, Acute (03/01/2022 5:09 PM EDT) Hepatitis A IgM Antibody Interpretation NONREACTIVE NONREACTIVE . [facility] Hepatitis B Core IgM Antibody Interpretation NONREACTIVE NONREACTIVE . [facility] Comment: Biotin concentrations greater than 150 ng/ml may cause falsely depressed results for HBCAB. Hepatitis B Surface Antigen Interpretation NONREACTIVE NONREACTIVE . [facility] 03/01/2022 5:09 PM EDT Nancy Martin NP LAB BLOOD ORDERABLES Final Resul t CONVERSION [facility] LAB from Last 3 Months or Most Recently Relevant to Health Maintenance Insurance [facility] Care Teams Ladle Pourer Relationship Specialty Start Date End Date Claude Coles [address] [place] [address] PCP - General Family Medicine 06/20/24
== END 2024-08-27 10:33 | disposition home or self-care (01) ==
LOC: HO.HBS 10:31
PROVIDERS: PCP Family Medicine; Visit Provider Physician Assistant Surgical
DX: E66.811 Obesity, class 1 (principal); Z68.32 Body mass index [BMI] 32.0-32.9, adult; Z90.3 Acquired absence of stomach [part of]; Z98.84 Bariatric surgery status
CPT/HCPCS: 98012

== ENCOUNTER → 2024-08-27 10:31 | Outpatient (BNVA) | payer OTHER, SELFPAY | PROVIDERS: PCP Family Medicine; Visit Provider Physician Assistant Surgical | DX: Z98.84 Bariatric surgery status (principal); E53.8 Deficiency of other specified B group vitamins; E20.9 Hypoparathyroidism, unspecified ==

== ENCOUNTER 2024-10-25 08:59 | Outpatient (AMB) | payer OTHER, SELFPAY ==
--- NOTE | 2024-10-25 08:41 | A.OFFVIS_ITS ---
VS Expanded 10/25/24 08:43 Height 5 ft 1 in Weight 174 lb BMI 32.9 Intake Visit Reasons: (TV) PO LSG 04/18/22 [employer] Machinist Required: No Allergies No Known Allergies Allergy (Verified 04/21/23 10:12) Medication List - Last Reconciled 10/25/24 by MICHAEL Marcano [fusion grace+D PO] [fusion MVI PO DAILY] inulin (Fiber Gummies) grams PO [skyrizi subcut .q 3 mon] HPI Comments Details: This?a?49?yo female who is s/p LSG without hiatal hernia repair on?04/18/[address] Gonzalez. She developed RUQ abd pain and found to have symptomatic cholelithiasis and underwent uneventful lap radha on 06/25/22.? Presents for 2 year 7 month post op LSG visit. Weight today is 174 pounds, with a BMI of 32.9.? There has been a 78.2 pound weight loss,(initial weight 247.8 pounds) since starting the program on 02/15/22 reflecting a 31.5% total body weight loss and a weight loss of 42.9 pounds since surgery (operative weight 212.5 pounds) reflecting a 20.1% TBWL since surgery.? Reports infrequent but normal bowel movements every 1-2 days and uses stool softeners regularly.?? She reports she has had several issuers over the last year including uterine fibroids and ovarian cysts. Following up with PCP and had MRI for her back. Going to go to a scalp treatment specialist. They are also investigating if she has MS. She has been adding in a 22 gm scoop of protein powder and sometimes adds this if she misses a shake She has developed diarrhea and nausea over the last 2 days. She has changed back to orgain shake 1 scoop x 2, HB egg in the middle of the 2 shakes. Wants to go back to basics using shakes, bars, meal. Wants to only use orgain. Present meal plan includes: Premier protein ready to drink shake x 1 or seeq 1 scoop (22 g per scoop) Premier protein ready to drink shake 4 oz mixed with 6-8 oz of unsweetened almond milk or seeq 1/2 scoop Meal with 6 forks of protein and 5 forks of vegetables May have an apple, pear, kiwi or berries if needed 40 oz fulids?? ? Exercise routine includes: due to back pain, walking is ok but only 3-5 good days out of 7. Walking outside, recumbent bike was painful PFSH Medical History Psoriasis DJD (degenerative joint disease) PONV (postoperative nausea and vomiting) HTN (hypertension) Surgical History H/O gastric sleeve Hx of tubal ligation History of bilateral breast implants Hx of mastectomy Hx of colonoscopy Hx of shoulder surgery Family History Mother COPD (chronic obstructive pulmonary disease) Father No problems noted. Daughter No problems noted. Daughter No problems noted. Daughter No problems noted. Daughter No problems noted. Social History Household Members: Spouse Housing: House Are you a primary director long term care to a significant other at home: Yes ( handicapped daughter) Do you presently have visiting nurse or other home services: No Alcohol intake: current Alcohol intake frequency: holidays/special occasions only Patient Tobacco Use Status: Former Tobacco user Tobacco use type: Cigarette Second Hand Smoke Exposure: No service: No Current occupational status: employed Telehealth Telehealth Telehealth Platform: Telephone Location of provider rendering services: practice address Location of patient: address on file Patient Identification confirmed using: Name, : Yes Telehealth method: voice only Patient verbally consented to treatment: Yes Patient verbally consented to billing insurance company: Yes Patient informed of any privacy concerns related to visit: Yes Minutes spent on Phone/Video with Pt.: 15 Assessment & Plan Assessment & Plan (1) S/P laparoscopic sleeve gastrectomy: Code(s): Z98.84 - Bariatric surgery status Category: Surgical Plan: Wants to change her meal plan: Using orgain protein powder Shake, 1 scoop at 6-8, 10-12, 2-4 Meal at 6 with 6 forks protein and 5 forks vegetables Built bar at 7-9 Encouraged to track calories using [employer] while walking outside. Encouraged to join local [email or web address] so that she may walk in the pool to decrease any impact on her back. Return to clinic late March for 3 year follow-up
[2024-10-25 08:43] VITALS: BMI 32.9
--- OUTSIDE RECORDS SUMMARY | 2024-10-25 09:52 | XMS_ITS | Clinical Summary ---
Author Organization [facility] Address [address] [place] [address] Care Team Providers Care Kiln Cleaner Name Role Phone Claude Coles Chiquita Primary Care Provider [phone] Allergies No known active allergies Medications risankizumab-rz [...] Encounters Date Type Department Care Team Description 10/19/2024 2:00 PM EDT Office Visit [facility] [address] [place] [address] Wes Hyman MD Midline low back pain, unspecified chronicity, unspecified whether sciatica present (Primary Dx) 10/18/2024 Transcribe Orders [facility] Physician Referral Services [address] [place] [address] Claude Coles Low back pain, unspecified back pain laterality, unspecified chronicity, unspecified whether sciatica present (Primary Dx) 08/17/2024 Orders Only [facility] @ [address] [address] Claude Coles Radiculopathy, lumbar region 08/16/2024 4:39 PM EST - 08/16/2024 11:59 PM EST Hospital Encounter [facility] @ [address] [address] Radiculopathy, lumbar region Discharge Disposition: Home or Self Care () 08/16/2024 Orders Only [facility] @ [address] [address] Claude Coles Radiculopathy, lumbar region from Last 3 Months Immunizations Immunization Administration Dates Next Due Human Rabies Vaccine from [facility] Fibroblast Culture 06/19/2023,06/12/2023,06/08/2023,2022 Rabies Immune Globulin 06/05/2023 Tetanus Toxoid, Reduced [...] Sign Reading Time Taken Comments Blood Pressure 109/74 10/19/2024 2:32 PM EDT Pulse 82 10/19/2024 2:32 PM EDT Temperature 36.1 ??C (97 ??F) 06/20/2024 10:40 AM EST Respiratory Rate 18 10/19/2024 2:32 PM EDT Oxygen Saturation 97% 10/19/2024 2:32 PM EDT Inhaled Oxygen Concentration - - Weight 74.8 [...] 3-dose series) 1996 Mammogram 2017 COVID-19 Vaccine (2023-2 5 season) 2024 12/17/2020, 11/19/2020 Alcohol/Substance Use Screening 07/21/2024 Depression Screening and Follow-Up 07/21/2024 Social Drivers of Health Annual Screening 07/21/2024 Influenza Vaccine (Season Ended) 2025 DTaP,Tdap,and Td Vaccines (2 - Td or Tdap) 06/05/2033 06/05/2023, 09/20/2005 RSV Vaccine (60+ years old a nd patients) (1 - 1-dose 75+ series) 2052 Hepatitis C Screening Completed 03/01/2022 , 03/01/2022 Pneumococcal Vaccine: Pediatric (0-5 Years) and At-Risk Patients (6-50 Years) Aged Out No longer eligible based on patient's age to complete this topic Procedures * Due to [place] state law, this organization might not be sharing negative HIV tests. Procedure Name Priority Date/Time Associated Diagnosis Comments XR LUMBAR SPINE 4+ VIEWS INCLUDING FLEXION/EXTENSION Routine 10/19/2024 3:34 PM EDT Midline low back pain, unspecified chronicity, unspecified whether sciatica present MRI LUMBAR SPINE WO CONTRAST Routine 08/16/2024 6:00 PM EST Radiculopathy, lumbar region HEPATITIS PANEL, ACUTE Routine 03/01/2022 5:09 PM EDT from Last 3 Months or Most Recently Relevant to Health Maintenance Results * Due to [place] state law, this organization might not be sharing negative HIV tests. * X-ray lumbar spine flexion and extension only 4+ views (10/19/2024 3:34 PM EDT) Anatomical Region Laterality Modality Spine, L-spine Computed Radiogr aphy 10/20/2024 8:24 PM EDT Impressions 10/20/2024 8:28 PM EDT FINDINGS/IMPRESSION: Stature and alignment of the lumbar vertebral bodies is maintained. There is mild L4-5 degenerative disc disease and bilateral L5-S1 facet degenerative arthropathy. Flexion extension views reveals no evidence of dynamic instability. Post surgical changes within the upper abdomen. If this radiology report contains a blank impression section, it is an incomplete radiology report. ??Please contact the interpreting radiologist or applicable radiology division as soon as possible to obtain the completed interpretation. ? Workstation ID: [id number] Narrative 10/20/2024 8:28 PM EDT COMPARISON: 08/16/2024. Resulting Agency Comment [id number] Procedure Note Deng Hall, DO - 10/20/2024 COMPARISON: 08/16/2024. IMPRESSION: FINDINGS/IMPRESSION: Stature and alignment of the lumbar vertebral bodies is maintained. Thereis mild L4-5 degenerative disc disease and bilateral L5-S1 facetdegenerative arthropathy. Flexion extension views reveals no evidence ofdynamic instability. Post surgical changes within the upper abdomen. If this radiology report contains a blank impression section, it is anincomplete radiology report. Please contact the interpreting radiologistor applicable radiology division as soon as possible to obtain thecompleted interpretation. Workstation ID: [id number] us Wes Hyman MD IMG XR PROCEDURES Final Result * MRI Lumbar Spine WO Contrast (08/16/2024 6:00 PM EST) Anatomical Region Laterality Modality Spine, L-spine Magnetic Resonan ce 08/17/2024 7:37 AM EST Impressions 08/17/2024 7:42 AM EST Minimal degenerative changes in the visualized spine, more pronounced at the L4- L5 with mild left and odwx-lb-bqbjempl right neural foraminal narrowing. ??No spinal canal stenosis. If this radiology report contains a blank impression section, it is an incomplete radiology report. ??Please contact the interpreting radiologist or applicable radiology division as soon as possible to obtain the completed interpretation. ? Workstation ID: [id number] Narrative 08/17/2024 7:42 AM EST EXAMINATION: MRI [...] facet joint arthropathy, causing mild left and elev-kj-zsxpvdzz right neural foraminal narrowing. ??No spinal canal stenosis. At the L5-S1 level, there is minimal disc bulge and mild bilateral facet joint arthropathy without causing significant spinal canal stenosis or bilateral neuroforamina narrowing. Resulting Agency Comment [id number] Procedure Note Lisa Pedroza MD PhD - [...] bilateral facet joint arthropathy, causing mild leftand ddfz-ce-xmmgsgrf right neural foraminal narrowing. No spinal canalstenosis. At the L5-S1 level, there is minimal disc bulge and mild bilateral facetjoint arthropathy without causing significant spinal canal stenosis orbilateral neuroforamina narrowing. IMPRESSION: Minimal degenerative changes in the visualized spine, more pronounced atthe L4- L5 with mild left and ngav-nd-labeyqmx right neural foraminalnarrowing. No spinal canal stenosis. If this radiology report contains a blank impression section, it is anincomplete radiology report. Please contact the interpreting radiologistor applicable radiology division as soon as possible to obtain thecompleted interpretation. Workstation ID: [id number] Claude Coles IMG MRI PROCEDURES Final Result * Hepatitis Panel, Acute (03/01/2022 5:09 PM EDT) Hepatitis A IgM Antibody Interpretation NONREACTIVE NONREACTIVE . CONVERSION DATA LAB Hepatitis B Core IgM Antibody Interpretation NONREACTIVE NONREACTIVE . CONVERSION DATA LAB Comment: Biotin concentrations greater than 150 ng/ml may cause falsely depressed results for HBCAB. Hepatitis B Surface Antigen Interpretation NONREACTIVE NONREACTIVE . CONVERSION DATA LAB 03/01/2022 5:09 PM EDT Nancy Martin SALES COMMISSIONS ANALYST LAB BLOOD ORDERABLES Final Resul t CONVERSION DATA LAB from Last 3 Months or Most Recently Relevant to Health Maintenance Insurance .[address] [address] [facility] Care Teams Kiln Cleaner Relationship Specialty Start Date End Date Claude Coles [address] [place] [address] PCP - General Family Medicine 06/20/24
--- OUTSIDE RECORDS SUMMARY | 2024-10-25 09:52 | XMS_ITS | Referral Summary ---
Author Organization [facility] Address [address] [place] [address] Care Team Providers Care Plant Sciences Professor Name Role Phone Claude Coles Primary Care Provider Encounters Date Type Department Care Team Description 10/19/2024 2:00 PM EDT Office Visit [facility] [address] [place] [id number] Wes Hyman MD Midline low back pain, unspecified chronicity, unspecified whether sciatica present (Primary Dx) 10/18/2024 Transcribe Orders [facility] Physician Referral Services [address] [place] [address] Claude Coles Low back pain, unspecified back pain laterality, unspecified chronicity, unspecified whether sciatica present (Primary Dx) 08/17/2024 Orders Only [facility] @ [facility] [address] [place] [address] Claude Coles Radiculopathy, lumbar region 08/16/2024 4:39 PM EST - 08/16/2024 11:59 PM EST Hospital Encounter [facility] @ [address] [address] Radiculopathy, lumbar region Discharge Disposition: Home or Self Care () 08/16/2024 Orders Only [facility] @ [address] [address] Claude Coles Radiculopathy, lumbar region from Last 3 Months Allergies No known [...] 12 hours, apply new patch. 15 patch Active Immunizations Immunization Administration Dates Next Due Human Rabies Vaccine from [facility] Fibroblast Culture 06/19/2023,06/12/2023,06/08/2023,2022 Rabies Immune Globulin 06/05/2023 [...] Not on file Procedures * Due to [place] [email or web address] law, this organization might not be sharing [...] to Health Maintenance Results * Due to [place] [email or web address] law, this organization might not be sharing [...] obtain the completed interpretation. ? Workstation ID: [id number] Narrative 10/20/2024 8:28 PM EDT COMPARISON: 08/16/2024. Resulting Agency Comment [id number] Procedure Note Deng Hall, DO - 10/20/2024 [...] possible to obtain thecompleted interpretation. Workstation ID: [id number] us Wes Hyman MD IMG XR PROCEDURES Final Result * MRI Lumbar Spine WO Contrast (08/16/2024 6:00 PM EST) Anatomical Region Laterality Modality Spine, L-spine Magnetic Resonan ce 08/17/2024 7:37 AM EST Impressions 08/17/2024 7:42 AM EST Minimal degenerative changes in the visualized spine, more pronounced at the L4- L5 with mild left and zwew-hy-yigpqagh right neural foraminal narrowing. ??No spinal canal stenosis. If this radiology report contains a blank impression section, it is an incomplete radiology report. ??Please contact the interpreting radiologist or applicable radiology division as soon as possible to obtain the completed interpretation. ? Workstation ID: [id number] Narrative 08/17/2024 7:42 AM EST EXAMINATION: MRI [...] facet joint arthropathy, causing mild left and scrw-nh-pwnqbnab right neural foraminal narrowing. ??No spinal canal stenosis. At the L5-S1 level, there is minimal disc bulge and mild bilateral facet joint arthropathy without causing significant spinal canal stenosis or bilateral neuroforamina narrowing. Resulting Agency Comment [id number] Procedure Note Lisa Pedroza MD PhD - [...] bilateral facet joint arthropathy, causing mild leftand svqd-kl-kqjgftde right neural foraminal narrowing. No spinal canalstenosis. At the L5-S1 level, there is minimal disc bulge and mild bilateral facetjoint arthropathy without causing significant spinal canal stenosis orbilateral neuroforamina narrowing. IMPRESSION: Minimal degenerative changes in the visualized spine, more pronounced atthe L4- L5 with mild left and qdqn-sc-vwwulczq right neural foraminalnarrowing. No spinal canal stenosis. If this radiology report contains a blank impression section, it is anincomplete radiology report. Please contact the interpreting radiologistor applicable radiology division as soon as possible to obtain thecompleted interpretation. Workstation ID: [id number] Claude Coles [facility] MRI PROCEDURES Final Result * Hepatitis Panel, [...] LAB 03/01/2022 5:09 PM EDT Nancy Martin ACTIVITIES SPECIALIST LAB BLOOD ORDERABLES Final Resul t CONVERSION DATA LAB from Last 3 Months or Most Recently Relevant to Health Maintenance Insurance [facility] [address] [address] [facility] Care Teams Plant Sciences Professor Relationship Specialty Start Date End Date Claude Coles [address] [place] [address] PCP - General Family Medicine 06/20/24
== END 2024-10-25 09:00 | disposition home or self-care (01) ==
LOC: HO.HBS 08:59
PROVIDERS: PCP Family Medicine; Visit Provider Physician Assistant Surgical
DX: E66.811 Obesity, class 1 (principal); Z68.32 Body mass index [BMI] 32.0-32.9, adult; Z90.3 Acquired absence of stomach [part of]; Z98.84 Bariatric surgery status
CPT/HCPCS: 98012

== ENCOUNTER → 2024-10-25 08:59 | Outpatient (BNVA) | payer OTHER, SELFPAY | PROVIDERS: PCP Family Medicine; Visit Provider Physician Assistant Surgical | DX: Z98.84 Bariatric surgery status (principal); E53.8 Deficiency of other specified B group vitamins; E20.9 Hypoparathyroidism, unspecified ==

== ENCOUNTER 2025-03-25 13:48 | Outpatient (AMB) | payer OTHER, SELFPAY ==
--- NOTE | 2025-03-25 08:41 | MHC.OFFVISWM ---
VS Expanded 03/25/25 08:49 Height 5 ft 1 in Weight 155 lb BMI 29.3 Intake Visit Reasons: TV PO LSG 04/18/22 Allergies No Known Allergies Allergy (Verified 04/21/23 10:12) HPI Comments Details: This?a?49?yo female who is s/p LSG without hiatal hernia repair on?04/18/[address] Gonzalez. She developed RUQ abd pain and found to have symptomatic cholelithiasis and underwent uneventful lap radha on 06/25/22.? Presents for 3 year post op LSG visit. Weight today is 155 pounds, with a BMI of 29.3.? There has been a 92.8 pound weight loss,(initial weight 247.8 pounds) since starting the program on 02/15/22 reflecting a 37.4% total body weight loss and a weight loss of 57.5 pounds since surgery (operative weight 212.5 pounds) reflecting a 27% TBWL since surgery.? Reports infrequent but normal bowel movements every 1-2 days and uses stool softeners regularly.?? She reports she has had several issuers over the last year including uterine fibroids and ovarian cysts. Following up with PCP and had MRI for her back. Going to go to a physician office specialist. She is following the meal plan as described but not exercising regularly due to feeling tired Present meal plan includes: Using orgain protein powder Shake, 1 scoop at 6-8, 10-12, 2-4 Meal at 6 with 6 forks protein and 5 forks vegetables Built bar at 7-9 40 oz fulids?? ? Exercise routine includes: nothing formal previously gym - treadmill, stationary bike [facility] Medical History Psoriasis DJD (degenerative joint disease) PONV (postoperative nausea and vomiting) HTN (hypertension) Surgical History H/O gastric sleeve Hx of tubal ligation History of bilateral breast implants Hx of mastectomy Hx of colonoscopy Hx of shoulder surgery Family History Mother COPD (chronic obstructive pulmonary disease) Father No problems noted. Daughter No problems noted. Daughter No problems noted. Daughter No problems noted. Daughter No problems noted. Social History Household Members: Spouse Housing: House Are you a primary acute care physical therapist to a significant other at home: Yes ( handicapped daughter) Do you presently have visiting nurse or other home services: No Alcohol intake: current Alcohol intake frequency: holidays/special occasions only Patient Tobacco Use Status: Former Tobacco user Tobacco use type: Cigarette Second Hand Smoke Exposure: No service: No Current occupational status: employed Telehealth Telehealth Telehealth Platform: Telephone Location of provider rendering services: practice address Location of patient: address on file Patient Identification confirmed using: Name, : Yes Telehealth method: voice only Patient verbally consented to treatment: Yes Patient verbally consented to billing insurance company: Yes Patient informed of any privacy concerns related to visit: Yes Minutes spent on Phone/Video with Pt.: 15 Assessment & Plan Assessment & Plan (1) S/P laparoscopic sleeve gastrectomy: Code(s): Z98.84 - Bariatric surgery status Category: Surgical Plan: Overall, the patient is doing fairly well. She is not exercising consistently and we discussed this. She certainly can if she wishes to achieve a healthier weight. She will continue to follow the meal plan. Discussed the importance of getting her labs done. Follow-up in the office in 6 months Orders: Orders Hemoglobin A1c Today E20.9 - Hypoparathyroidism, unspecified, E53.8 - Deficiency of other specified B group vitamins, Z98.84 - Bariatric surgery status Complete Blood Count Auto Diff Today E20.9 - Hypoparathyroidism, unspecified, E53.8 - Deficiency of other specified B group vitamins, Z98.84 - Bariatric surgery status Lipid Panel Today E20.9 - Hypoparathyroidism, unspecified, E53.8 - Deficiency of other specified B group vitamins, Z98.84 - Bariatric surgery status IRON PROFILE Today E20.9 - Hypoparathyroidism, unspecified, E53.8 - Deficiency of other specified B group vitamins, Z98.84 - Bariatric surgery status Comprehensive Met. Panel Today E20.9 - Hypoparathyroidism, unspecified, E53.8 - Deficiency of other specified B group vitamins, Z98.84 - Bariatric surgery status Vitamin B12 and Folate Today E20.9 - Hypoparathyroidism, unspecified, E53.8 - Deficiency of other specified B group vitamins, Z98.84 - Bariatric surgery status C Reactive Protein Today E20.9 - Hypoparathyroidism, unspecified, E53.8 - Deficiency of other specified B group vitamins, Z98.84 - Bariatric surgery status TSH reflex Free T4 Today E20.9 - Hypoparathyroidism, unspecified, E53.8 - Deficiency of other specified B group vitamins, Z98.84 - Bariatric surgery status Insulin Today E20.9 - Hypoparathyroidism, unspecified, E53.8 - Deficiency of other specified B group vitamins, Z98.84 - Bariatric surgery status Zinc Today E20.9 - Hypoparathyroidism, unspecified, E53.8 - Deficiency of other specified B group vitamins, Z98.84 - Bariatric surgery status Vitamin B1 Today E20.9 - Hypoparathyroidism, unspecified, E53.8 - Deficiency of other specified B group vitamins, Z98.84 - Bariatric surgery status Vitamin A Today E20.9 - Hypoparathyroidism, unspecified, E53.8 - Deficiency of other specified B group vitamins, Z98.84 - Bariatric surgery status Ferritin Today E20.9 - Hypoparathyroidism, unspecified, E53.8 - Deficiency of other specified B group vitamins, Z98.84 - Bariatric surgery status Vitamin D 25-OH Total Today E20.9 - Hypoparathyroidism, unspecified, E53.8 - Deficiency of other specified B group vitamins, Z98.84 - Bariatric surgery status
[2025-03-25 08:49] VITALS: BMI 29.3
--- OUTSIDE RECORDS SUMMARY | 2025-03-25 14:16 | XMS_ITS | Clinical Summary ---
Author Organization [facility] Address [address] [place] [address] Care Team Providers Care Square Cutter Name Role Phone Sanket Claude Porras Primary Care Provider [phone] Allergies No known active allergies Medications risankizumab-rz [...] new patch. 15 patch 4 Active Immunizations Immunization Administration Dates Next Due Human Rabies Vaccine from [facility] Fibroblast Culture 06/19/2023,06/12/2023,06/08/2023,2022 Rabies Immune Globulin [...] 82 10/19/2024 2:32 PM EDT Temperature 36.1 C (97 F) 06/20/2024 10:40 AM EST Respiratory Rate 18 [...] - 19+ 3-dose series) 1996 Mammogram 2017 Alcohol/Substance Use Screening 07/21/2024 Depression Screening and Follow-Up 07/21/2024 Social Drivers of Health Annual Screening 07/21/2024 Diabetes Screening 03/01/2025 03/01/2022 COVID-19 Vaccine (3 - 2024-2 6 season) 2025 12/17/2020, 11/19/2020 Influenza Vaccine (#1) 2025 DTaP,Tdap,and Td Vaccines (2 - Td or Tdap) 06/05/2033 06/05/2023, 09/20/2005 RSV Vaccine (60+ years old a nd patients) (1 - 1-dose 75+ series) 2052 Hepatitis C Screening Completed 03/01/2022 , 03/01/2022 Pneumococcal Vaccine: Pediatric (0-5 Years) and At-Risk Patients (6-50 Years) Aged Out No longer eligible based on patient's age to complete this topic Procedures * Due to [place] [employer] law, this organization might not be sharing negative HIV tests. Procedure Name Priority Date/Time Associated Diagnosis Comments COMPREHENSIVE METABOLIC PANEL Routine 03/01/2022 5:09 PM EDT HEPATITIS PANEL, ACUTE Routine 5:09 PM EDT from Last 3 Months or Most Recently Relevant to Health Maintenance Results * Due to [place] [employer] law, this organization might not be sharing negative HIV tests. * Hepatitis Panel, Acute (03/01/2022 5:09 PM [...] ORDERABLES Final Resul t CONVERSION DATA LAB * (ABNORMAL) Comprehensive Metabolic Panel (03/01/2022 5:09 PM EDT) NA 139 136 - 145 mMOL/L CONVERSION DATA LAB K 3.9 3.5 - 5.1 mMOL/L CONVERSION DATA LAB Cl 101 98.0 - 109.0 mMOL/L CONVERSION DATA LAB CO2 26 23 - 32 mMOL/L CONVERSION DATA LAB Anion Gap 16 11 - 21 mMOL/L CONVERSION DATA LAB BUN 13 6 - 20 mg/dL CONVERSION DATA LAB Creatinine 0.77 0.50 - 1.12 mg/dL CONVERSION DATA LAB eGFR >90 60- eGFR CONVERSION DATA LAB Comment:GFR >89mL/min/1.73m^ 2, NORMAL KIDNEY FUNCTION (STAGE G1) Glucose 93 60 - 99 mg/dL CONVERSION DATA LAB Calcium 9.8 8.4 - 10.4 mg/dL CONVERSION DATA LAB Bilirubin, Total 0.25 0.2 - 1.2 mg/dL CONVERSION DATA LAB AST 26 0 - 33 U/L CONVERSIO N DATA LAB ALT 25 0 - 33 U/L CONVERSIO N DATA LAB Total Protein 7.5 6.6 - 8.7 g/dL CONVERSION DATA LAB Albumin 4.3 3.5 - 5.0 gm/dL CONVERSION DATA LAB Globulin, Total 3.2 1.3 - 3.5 gm/dL CONVERSION DATA LAB A/G Ratio 1.3(L) 1.5 - 3.0 . CONVERSION DATA LAB Alkaline Phosphatase 53 40.0 - 129.0 U/L CONVERSION DATA LAB 03/01/2022 5:09 PM EDT Nancy Martin ACCESS DATABASE DEVELOPER LAB BLOOD ORDERABLES Final Resul t CONVERSION DATA LAB from Last 3 Months or Most Recently Relevant to Health Maintenance Insurance [facility] Care Teams Square Cutter Relationship Specialty Start Date End Date Claude Coles [address] [place] [id number] PCP - General Family Medicine 06/20/24
== END 2025-03-25 14:09 | disposition home or self-care (01) ==
LOC: HO.HBS 13:48
PROVIDERS: PCP Family Medicine; Visit Provider Physician Assistant Surgical
DX: E66.3 Overweight (principal); Z68.29 Body mass index [BMI] 29.0-29.9, adult; Z90.3 Acquired absence of stomach [part of]; Z98.84 Bariatric surgery status
CPT/HCPCS: 98013

== ENCOUNTER → 2025-03-25 13:48 | Outpatient (BNVA) | payer OTHER, SELFPAY | PROVIDERS: PCP Family Medicine; Visit Provider Physician Assistant Surgical | DX: E66.3 Overweight (principal); Z68.29 Body mass index [BMI] 29.0-29.9, adult; Z98.84 Bariatric surgery status; Z87.891 Personal history of nicotine dependence; Z13.89 Encounter for screening for other disorder ==